=== PATIENT | female | born 1975 | race Caucasian/White ===

== ENCOUNTER 2018-11-21 19:49 | Emergency (ER) | payer OTHER ==
[~2018-11-21] VITALS: Ht 160 cm; Wt 70.7 kg
--- NOTE | 2018-11-21 20:07 | ECGEPIP ---
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
[2018-11-21] MEDS ORDERED: HEPARIN DRIP 25,000 UNITS in APPROPRIATE DILUENT 1 EA IV SCH (20:08)
[2018-11-21] MEDS ORDERED: HEPARIN SOD (PORCINE) 5000 UNITS/ML VIAL IV ONE (20:15)
[2018-11-21] MEDS ORDERED: TENECTEPLASE 50 MG KIT (TNKase)(J3101) IV ONE (20:15)
[2018-11-21] MEDS ORDERED: CLOPIDOGREL 300 MG TAB (PLAVIX) PO ONE (20:15)
[2018-11-21 20:20] VITALS: BP 146/88
[2018-11-21 20:21] LABS: BASO % 0.4 % (0.0-1.0); EOS # 0.1 10^3/uL (0.0-0.50); EOS % 1.1 % (0.0-3.0); HEMATOCRIT 40.1 % (36.0-47.0); HEMOGLOBIN 13.6 g/dl (12.0-15.5); LYMPH # 3.4 10^3/uL (1.5-4.5); LYMPH % 37.3 % (24.0-44.0); MEAN CORPUSCULAR HEMOGLOBIN 29.6 pg (27.0-33.0); MEAN CORPUSCULAR HGB CONC 33.9 g/dl (32.0-36.5); MEAN CORPUSCULAR VOLUME 87.4 fl (80.0-96.0); MONO # 0.6 10^3/uL (0.0-0.8); MONO % 6.5 % (0.0-5.0); NEUTROPHILS % 54.3 % (36.0-66.0); PLATELET COUNT, AUTOMATED 271 10^3/uL (150-450); RED BLOOD COUNT 4.59 10^6/uL (4.00-5.40); WHITE BLOOD COUNT 9.2 10^3/uL (4.0-10.0)
[2018-11-21] MEDS ORDERED: CBD OIL (20:22)
--- NOTE | 2018-11-21 20:35 | REP ---
Clinical: Chest pain . Comparison: None . Findings: The mediastinum and cardiac silhouette are stable and within normal limits for portable technique. The lung gillis are clear without acute consolidation, effusion, or pneumothorax. Skeletal structures are intact. Impression: No acute cardiopulmonary process appreciated. Electronically Signed by Zhang Silva MD 11/21/2018 08:27 P
[2018-11-21 20:39] LABS: INR 0.92; PROTHROMBIN TIME 12.5 SECONDS (12.1-14.4)
[2018-11-21 20:42] LABS: BLOOD UREA NITROGEN 8 MG/DL (7-18); CALCIUM LEVEL 8.6 MG/DL (8.5-10.1); CARBON DIOXIDE LEVEL 26 MEQ/L (21-32); CHLORIDE LEVEL 104 MEQ/L (98-107); CK-MB VALUE MASS < 1.0 NG/ML (<3.6); CPK CREATINE PHOSPHOKINASE 70 U/L (26-192); CREATININE FOR GFR 0.68 MG/DL (0.55-1.30); GLOMERULAR FILTRATION RATE > 60.0 (>58); GLUCOSE, FASTING 162 MG/DL (70-100); MB/CK RELATIVE INDEX 1.43 (< OR =4); POTASSIUM SERUM 3.6 MEQ/L (3.5-5.1); SODIUM LEVEL 139 MEQ/L (136-145); TROPONIN I 0.06 NG/ML (< 0.10)
== END 2018-11-21 20:33 | disposition short-term general hospital (02) ==
LOC: EDBD 19:49 → M ED 19:49
DX: I21.19 ST elevation (STEMI) myocardial infarction involving other coronary artery of inferior wall (principal); J30.2 Other seasonal allergic rhinitis; Z82.49 Family history of ischemic heart disease and other diseases of the circulatory system; Z79.899 Other long term (current) drug therapy
CPT/HCPCS: 71045; 80048; 82550; 82553; 85025; 85610; 93005; 93041; 94760; 96374; 99285; J3101

== ENCOUNTER 2018-11-21 20:49 | Emergency (ER) | payer OTHER ==
[~2018-11-21] VITALS: Ht 160 cm; Wt 70.7 kg
[~2018-11-21 20:49] MED LIST: CBD OIL
[2018-11-21 21:21] VITALS: BP 111/67
[2018-11-21] MEDS ORDERED: NS 1,000 ML IV ONE ×2 (21:30)
--- NOTE | 2018-11-21 21:36 | REP ---
Clinical: Hypotension. Technique: Axial noncontrast images from the thoracic inlet to the upper abdomen with coronal and sagittal re-formations. Findings: The bilateral lung gillis are relatively well aerated. Minimal posterior basilar dependent changes and trace left basilar atelectasis suggested. Small nodular density in the lateral aspect of the right lower lobe (image 69) and small nodular densities in the medial right middle lobe (image 67) cannot be excluded. No effusion. No pneumothorax. Tracheobronchial tree is patent. Mediastinum demonstrates normal thoracic aorta, heart and pericardium. No obvious adenopathy. Musculoskeletal structures are intact without focal osseous abnormality. Impression: 1. Trace dependent changes (left greater than right) 2. Small noncalcified nodular densities in the right lower lobe and medial right middle lobe warrants followup examination in 3-6 months. Electronically Signed by Zhang Silva MD 11/21/2018 09:28 P
--- NOTE | 2018-11-21 21:43 | REP ---
Clinical: Abdominal pain and hypotension. Technique: Axial noncontrast images from the lung bases to the pubic symphysis with coronal and sagittal re-formations. Comparison: 05/11/2016. Findings: Liver demonstrates scattered hypodensities which have increased from prior examination. The largest lesion is identified in the posterior segment right lobe and measures approximately 2.8 cm maximal diameter. Spleen, pancreas, gallbladder, bilateral adrenal glands and left kidney are normal. Right kidney includes 3 mm nonobstructing lower pole calculus. No perinephric stranding or hydroureteronephrosis. The enteric system is without obstruction or acute inflammatory process. Pelvis demonstrates normal bladder and age-appropriate uterus/adnexa. No ascites. No free air. No adenopathy. Abdominal aorta without aneurysm. Musculoskeletal structures are intact. Impression: 1. Increased hepatic hypodensities measuring up to 2.8 cm. Consider outpatient follow-up contrast-enhanced CT of the abdomen using hepatic mass protocol for further evaluation. 2. 3 mm nonobstructing right renal calculus. 3. No further acute abdominopelvic pathology appreciated. Electronically Signed by Zhang Silva MD 11/21/2018 09:34 P
--- NOTE | 2018-11-22 08:11 | ECGEPIP ---
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
== END 2018-11-21 21:35 | disposition short-term general hospital (02) ==
LOC: M ED 20:49
DX: I21.3 ST elevation (STEMI) myocardial infarction of unspecified site (principal); I47.2 Ventricular tachycardia; J30.2 Other seasonal allergic rhinitis; N20.0 Calculus of kidney; R91.8 Other nonspecific abnormal finding of lung field; Z79.899 Other long term (current) drug therapy

== ENCOUNTER 2019-02-16 09:04 | Observation (INO) | payer OTHER ==
[~2019-02-16] VITALS: Ht 162.6 cm; Wt 69.9 kg
[2019-02-16] MEDS ORDERED: ASPIRIN 81 MG CHEW TABLET PO ONE (09:15)
--- NOTE | 2019-02-16 09:37 | REP ---
Portable chest, 09:23, single AP view with the patient upright: Comparison is 11/21/2018. The lung gillis are clear. The cardiac size is normal. The giovani, mediastinum, and skeletal structures are unremarkable. Impression: Negative portable chest. There is no interval change. Electronically Signed by Tanner Tarango MD 02/16/2019 09:28 A
[2019-02-16] MEDS ORDERED: B-122500 PO (09:41)
[2019-02-16] MEDS ORDERED: FLON1SPR (09:41)
[2019-02-16] MEDS ORDERED: SING4CHW9 PO (09:41)
[2019-02-16] MEDS ORDERED: D 50CAP3 PO (09:41)
[2019-02-16] MEDS ORDERED: MULT1TAB16 PO (09:41)
[2019-02-16] MEDS ORDERED: CLOP75TA2 PO (09:41)
[2019-02-16] MEDS ORDERED: CALCCAP4 PO (09:41)
[2019-02-16] MEDS ORDERED: AZEL1SPR3 (09:41)
[2019-02-16] MEDS ORDERED: VITA500C24 PO (09:41)
[2019-02-16] MEDS ORDERED: ATOR80TA59 PO (09:41)
[2019-02-16] MEDS ORDERED: OMEGCAP4 PO (09:41)
[2019-02-16] MEDS ORDERED: ASPI81TA85 PO (09:41)
[2019-02-16] MEDS ORDERED: ALAW0.02 OU (09:41)
[2019-02-16] MEDS ORDERED: VITA1CAP21 PO (09:41)
[2019-02-16] MEDS ORDERED: VITA400C5 PO (09:41)
[2019-02-16] MEDS ORDERED: METO1TAB87 PO (09:41)
[2019-02-16] MEDS ORDERED: LISI-542 PO (09:41)
[2019-02-16] MEDS ORDERED: CETI10CA2 PO (09:41)
[2019-02-16] MEDS ORDERED: NITR0.4S14 SL (09:41)
[2019-02-16] MEDS ORDERED: MAGN100T PO (09:41)
[2019-02-16] MEDS ORDERED: CLOPIDOGREL 75 MG TAB PO ONE (10:15)
[2019-02-16] MEDS ORDERED: METOPROLOL TART 25 MG TABLET PO ONE (10:15)
[2019-02-16] MEDS ORDERED: LISINOPRIL 5 MG TAB PO ONE (10:15)
[2019-02-16 10:22] LABS: BASO % 0.2 % (0.0-1.0); EOS % 0.2 % (0.0-3.0); HEMATOCRIT 39.2 % (36.0-47.0); HEMOGLOBIN 13.4 g/dl (12.0-15.5); LYMPH # 1.1 10^3/uL (1.5-4.5); LYMPH % 10.9 % (24.0-44.0); MEAN CORPUSCULAR HEMOGLOBIN 30.5 pg (27.0-33.0); MEAN CORPUSCULAR HGB CONC 34.2 g/dl (32.0-36.5); MEAN CORPUSCULAR VOLUME 89.3 fl (80.0-96.0); MONO # 0.4 10^3/uL (0.0-0.8); MONO % 3.9 % (0.0-5.0); NEUTROPHILS # 8.5 10^3/uL (1.8-7.7); NEUTROPHILS % 84.3 % (36.0-66.0); PLATELET COUNT, AUTOMATED 243 10^3/uL (150-450); RED BLOOD COUNT 4.39 10^6/uL (4.00-5.40); WHITE BLOOD COUNT 10.1 10^3/uL (4.0-10.0)
[2019-02-16 10:32] LABS: INR 1.06; PARTIAL THROMBOPLASTIN TIME 26.3 SECONDS (25.0-38.4); PROTHROMBIN TIME 13.5 SECONDS (11.8-14.0)
[2019-02-16 10:46] LABS: BLOOD UREA NITROGEN 12 MG/DL (7-18); CARBON DIOXIDE LEVEL 27 MEQ/L (21-32); CHLORIDE LEVEL 105 MEQ/L (98-107); CK-MB VALUE MASS < 1.0 NG/ML (<3.6); CPK CREATINE PHOSPHOKINASE 53 U/L (26-192); CREATININE FOR GFR 0.63 MG/DL (0.55-1.30); GLOMERULAR FILTRATION RATE > 60.0 (>58); GLUCOSE, FASTING 101 MG/DL (70-100); MB/CK RELATIVE INDEX 1.89 (< OR =4); POTASSIUM SERUM 3.9 MEQ/L (3.5-5.1); SODIUM LEVEL 141 MEQ/L (136-145); THYROID STIMULATING HORMONE 0.732 uIU/ML (0.358-3.740); TROPONIN I < 0.02 NG/ML (< 0.10)
[2019-02-16 12:40] LABS: CK-MB VALUE MASS < 1.0 NG/ML (<3.6); CPK CREATINE PHOSPHOKINASE 47 U/L (26-192); MB/CK RELATIVE INDEX 2.13 (< OR =4); TROPONIN I < 0.02 NG/ML (< 0.10)
[2019-02-16 14:53] LABS: CK-MB VALUE MASS < 1.0 NG/ML (<3.6); CPK CREATINE PHOSPHOKINASE 49 U/L (26-192); MB/CK RELATIVE INDEX 2.04 (< OR =4); TROPONIN I < 0.02 NG/ML (< 0.10)
[2019-02-16] MEDS ORDERED: MONT10TA2 PO (16:11)
[2019-02-16] MEDS ORDERED: TUMS500C PO (16:11)
[2019-02-16] MEDS ORDERED: RANI1TAB6 PO (16:11)
[2019-02-16] MEDS ORDERED: VITA10002 PO (16:11)
[2019-02-16] MEDS ORDERED: MAGN125C PO (16:11)
--- NOTE | 2019-02-16 17:19 | HPE ---
DATE OF ADMISSION: 02/16/2019 CHIEF COMPLAINT: Syncope. PRIMARY CARE PROVIDER: [facility]. DRY SANDER: Dr. Snyder. HISTORY: Earnestine Troy is a 43-year-old who had a recent ST segment invasion of myocardial infarction with rescue angioplasty to the right coronary artery with followup stenting of the LAD. She was admitted after having syncopal episode. She stood up this morning to get out of bed and she felt weak and lightheaded and flushed. She passed out. There are no associated palpitations. Last night she had some mild indigitation but no anginal pain. PAST MEDICAL HISTORY: Shows some mild hyperlipidemia and is being treated with Niacin and not a statin prior to her myocardial infarction. She has a history of allergic rhinitis. ALLERGIES: Unknown. MEDICATIONS: See medication summary. FAMILY HISTORY: Positive for coronary disease in father, had an PR at 48. REVIEW OF SYSTEMS: As above. No epistaxis, rectal bleeding, urinary bleeding, palpitations, no previous syncope. Exercise tolerance her been normal. PHYSICAL EXAM: Vital signs per flow sheet, 145/85. General, alert and conversant. No distress. Pupils are equal and round. Lungs are clear. Heart regular without murmur. Abdomen is soft and nontender and no masses. No peripheral edema. Normal strength in the arms and legs. EKG showed no ischemia. CBC and BMP unremarkable. IMPRESSION/PLAN: 1. Syncope. Probably orthostasis. The ER physician spoke with Dr. Snyder and he is advising telemetry monitoring overnight. Patient will be admitted to telemetry bed. Repeat cardial enzymes were ordered for tonight and in the morning. Electrolytes were ordered for the morning. Continue beta-ena therapy. 2. Continue aspirin. Plavix, and betablocker and atorvastatin. 3. Allergic rhinitis. Continue her singular. Case was discussed with Dr. Snyder. Patient has an appointment in the office in 3 days.
[2019-02-16 17:25] VITALS: BP 132/83
[2019-02-16 20:00] VITALS: BP 145/85
[2019-02-16] MEDS: METOPROLOL TART 25 MG TABLET PO SCH (20:46)
[2019-02-16] MEDS ORDERED: ATORVASTATIN 20 MG TAB PO SCH (21:00)
[2019-02-16] MEDS ORDERED: MONTELUKAST 10 MG TAB PO SCH (21:00)
[2019-02-16 21:35] LABS: CK-MB VALUE MASS < 1.0 NG/ML (<3.6); CPK CREATINE PHOSPHOKINASE 69 U/L (26-192); MB/CK RELATIVE INDEX 1.45 (< OR =4); TROPONIN I < 0.02 NG/ML (< 0.10)
[2019-02-16 23:59] VITALS: BP 116/73
[2019-02-17] MEDS ORDERED: FUROSEMIDE 40 MG/4 ML VIAL (J1940) IV ONE (03:15)
[2019-02-17 04:00] VITALS: BP 120/69
[2019-02-17 05:50] LABS: HEMATOCRIT 37.3 % (36.0-47.0); HEMOGLOBIN 12.5 g/dl (12.0-15.5); MEAN CORPUSCULAR HGB CONC 33.5 g/dl (32.0-36.5); MEAN CORPUSCULAR VOLUME 89.4 fl (80.0-96.0); PLATELET COUNT, AUTOMATED 236 10^3/uL (150-450); RED BLOOD COUNT 4.17 10^6/uL (4.00-5.40); WHITE BLOOD COUNT 7.6 10^3/uL (4.0-10.0)
[2019-02-17 06:25] LABS: BLOOD UREA NITROGEN 10 MG/DL (7-18); CALCIUM LEVEL 8.4 MG/DL (8.5-10.1); CARBON DIOXIDE LEVEL 25 MEQ/L (21-32); CHLORIDE LEVEL 106 MEQ/L (98-107); CK-MB VALUE MASS < 1.0 NG/ML (<3.6); CPK CREATINE PHOSPHOKINASE 70 U/L (26-192); CREATININE FOR GFR 0.68 MG/DL (0.55-1.30); GLOMERULAR FILTRATION RATE > 60.0 (>58); GLUCOSE, FASTING 123 MG/DL (70-100); MB/CK RELATIVE INDEX 1.43 (< OR =4); POTASSIUM SERUM 4.1 MEQ/L (3.5-5.1); SODIUM LEVEL 139 MEQ/L (136-145); TROPONIN I < 0.02 NG/ML (< 0.10)
[2019-02-17 08:00] VITALS: BP 113/72
[2019-02-17 08:10] VITALS: BP 124/74
[2019-02-17 08:14] VITALS: BP 124/74
[2019-02-17] MEDS: METOPROLOL TART 25 MG TABLET PO SCH (08:14)
[2019-02-17] MEDS ORDERED: LISINOPRIL 5 MG TAB PO SCH (09:00)
[2019-02-17] MEDS ORDERED: ASPIRIN 81 MG ENTERIC TAB PO SCH (09:00)
[2019-02-17] MEDS ORDERED: CLOPIDOGREL 75 MG TAB PO SCH (09:00)
[2019-02-17] MEDS ORDERED: MONTELUKAST 10 MG TAB PO SCH (09:00)
--- NOTE | 2019-02-17 17:01 | ECGEPIP ---
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
--- NOTE | 2019-02-17 18:49 | DS.PDOC ---
Discharge Summary General Date of Admission Feb 16, 2019 at 15:25 Date of Discharge 02/17/2019 Discharge Summary PROCEDURES PERFORMED DURING STAY: None. ADMITTING DIAGNOSES: 1. Syncope. DISCHARGE DIAGNOSES: 1. Syncope, coronary artery disease, dyslipidemia, allergic rhinitis. COMPLICATIONS/CHIEF COMPLAINT: Syncope. HISTORY OF PRESENT ILLNESS/HOSPITAL COURSE: This is a 43-year-old female who has a history of coronary artery disease. She had required angioplasty to the right coronary artery and stent to her LAD. The patient was found to have had a syncopal event today. She stood up rapidly and became lightheaded and flushed and passed out. She did not have any palpitations or chest pain associated with the event. The patient was placed on the telemetry floor. She is not noted to have any acute EKG changes and did not have recurrence of the event. Patient did receive IV hydration as it was felt the event was likely due to orthostatic hypotension. Serial cardiac enzymes were negative on 3 occasions. The patient's dental floss packer was contacted; recommendations are that the patient follow-up in his office on Tuesday.. DISCHARGE MEDICATIONS: Please see below. ALLERGIES: Please see below. PHYSICAL EXAMINATION ON DISCHARGE: VITAL SIGNS: Please see below. GENERAL: Awake, alert, conversant HEENT: Neck is supple with no adenopathy or thyromegaly, no scleral injection, oral mucosa moist CARDIOVASCULAR EXAMINATION: Regular rate and rhythm, no appreciable murmur RESPIRATORY EXAMINATION: Clear to auscultation ABDOMINAL EXAMINATION: Soft, benign EXTREMITIES: No peripheral edema SKIN: No acute lesions NEUROLOGICAL EXAMINATION: No focal neuromotor deficits, fully independently ambulatory LABORATORY DATA: Please see below. IMAGING: PROGNOSIS: ACTIVITY: As tolerated. DIET: Heart healthy DISCHARGE PLAN: The patient is stable for discharge to home. She'll follow up as planned with Dr. Snyder on Tuesday. Her medications are unchanged. DISPOSITION: , Self-Care. DISCHARGE CONDITION: Stable. TIME SPENT ON DISCHARGE: Greater than 35 minutes. Vital Signs/I&Os Vital Signs Date Time Temp Pulse Resp B/P (MAP) Pulse Ox O2 Delivery O2 Flow Rate FiO2 02/17/19 08:14 124/74 02/17/19 08:00 97.8 76 16 96 02/16/19 14:30 Room Air I&O- Last 24 Hours up to 6 AM 02/17/19 06:00 Intake Total 1560 ml Output Total 1500 ml Balance 60 ml Laboratory Data Labs 24H Laboratory Tests 2 02/16/19 20:56: Total Creatine Kinase 69, Creatine Kinase MB < 1.0, Creatine Kinase MB Relative Index 1.45, Troponin I < 0.02 02/17/19 04:54: Total Creatine Kinase 70, Creatine Kinase MB < 1.0, Creatine Kinase MB Relative Index 1.43, Troponin I < 0.02, Nucleated Red Blood Cells % (auto) 0.0, Anion Gap 8, Glomerular Filtration Rate > 60.0, Blood Urea Nitrogen 10, Creatinine 0.68, Sodium Level 139, Potassium Level 4.1, Chloride Level 106, Carbon Dioxide Level 25, Calcium Level 8.4L CBC/BMP Laboratory Tests 02/17/19 04:54 Red Blood Count 4.17, Mean Corpuscular Volume 89.4, Mean Corpuscular Hemoglobin 30.0, Mean Corpuscular Hemoglobin Concent 33.5, Red Cell Distribution Width 12.1, Calcium Level 8.4 L, Total Creatine Kinase 70 Discharge Medications Scheduled Ascorbic Acid (Vitamin C) 500 Mg Capsule, 500 MG PO DAILY, (Reported) Aspirin (Aspir 81) 81 Mg Tablet.dr, 81 MG PO DAILY, (Reported) Atorvastatin Calcium (Atorvastatin Calcium) 80 Mg Tablet, 80 MG PO QHS, (Reported) Calcium Carbonate/Vitamin D3 (Calcium 600 + Vit D 400 Softgl) 1 Each Capsule, 1 CAP PO Q2D, (Reported) Cetirizine HCl (ZyrTEC) 10 Mg Capsule, 10 MG PO DAILY, (Reported) Cholecalciferol (Vitamin D3) (Vitamin D3) 5,000 Unit Capsule, 5,000 UNIT PO DAILY, (Reported) Clopidogrel Bisulfate (Clopidogrel) 75 Mg Tablet, 75 MG PO DAILY, (Reported) Cyanocobalamin (Vitamin B-12) (Vitamin B-12) 1,000 Mcg Tablet, 1,000 MCG PO DAILY, (Reported) Lisinopril (Lisinopril) 5 Mg Tablet, 5 MG PO DAILY, (Reported) Magnesium Citrate (Magnesium Citrate) 125 Mg Capsule, 125 MG PO DAILY, (Reported) Metoprolol Tartrate (Metoprolol Tartrate) 25 Mg Tablet, 25 MG PO BID, (Reported) Mv-Min/Iron/Folic/Calcium/Vitk (Women's Multivitamin Tablet) 1 Each Tablet, 1 TAB PO DAILY, (Reported) [place]-3/Dha/Epa/Fish Oil ([place]-3 Fish Oil 1,000 mg Sfgl) 1,000 Mg Capsule, 1,000 MG PO DAILY, (Reported) Vitamin E (Dl,Tocopheryl Acet) (Vitamin E) 400 Unit Capsule, 400 UNIT PO DAILY, (Reported) Scheduled PRN Azelastine HCl (Azelastine HCl) 0.1% [place].pump, 2 SPRAY NA BID PRN for ALLERGIES, (Reported) Calcium Carbonate (Tums) 200 Mg Tab.chew, 500 MG PO ACHS PRN for HEARTBURN, (Reported) Fluticasone Propionate (Flonase Allergy Relief) 9.9 Ml [place].susp, 1 SPRAY NA BID PRN for ALLERGIES, (Reported) Ketotifen Fumarate (Alaway) 0.025% 10ML Drops, 1 DROP OU BID PRN for ALLERGIES, (Reported) Montelukast Sodium (Montelukast Sodium) 10 Mg Tablet, 10 MG PO DAILY PRN for ALLERGIES, (Reported) Nitroglycerin (Nitroglycerin) 0.4 Mg Tab.subl, 1 TAB SL NITRO PRN for CHEST PA IN, (Reported) Ranitidine HCl (Ranitidine HCl) 150 Mg Tablet, 1 TAB PO DAILY PRN for HEARTBURN, (Reported) Allergies Coded Allergies: No Known Allergies (Verified , 03/04/03) MILADY KIRAN MD Feb 17, 2019 18:49
--- NOTE | 2019-02-18 06:31 | ECGEPIP ---
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
--- NOTE | 2019-02-18 06:37 | ECGEPIP ---
[facility] - ED Test Date: 2019-02-16 Pat Name: JIGNA VASQUES Department: Room: - Gender: Female Lead Person: SAMANTHA : 1975 Requested By: Jah Zamarripa Order Number: [id number] Reading MD: Jah Almazan Measurements Intervals [place] Rate: 58 P: 64 TN: 179 QRS: 46 QRSD: 93 T: 2 QT: 418 QTc: 412 Interpretive Statements SINUS BRADYCARDIA PRIOR INFERIOR INFARCT NONSPECIFIC T-WAVE ABNORMALITY SIMILAR TO PRIOR ON SAME DATE Electronically Signed on 02-18-2019 6:36:51 EDT by Jah Almazan
--- NOTE | 2019-02-18 06:39 | ECGEPIP ---
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
== END 2019-02-17 12:02 | disposition home or self-care (01) ==
LOC: EDBD 09:04 → M ED 09:04 → M ED INP 15:25 → M PCU 17:19
PROVIDERS: ADMIT Family Medicine; ATTEND Student in an Organized Health Care Education/Training Program
DX: R55 Syncope and collapse (principal); I25.10 Atherosclerotic heart disease of native coronary artery without angina pectoris; I25.2 Old myocardial infarction; E78.49 Other hyperlipidemia; J30.9 Allergic rhinitis, unspecified; Z79.82 Long term (current) use of aspirin; Z79.899 Other long term (current) drug therapy; Z79.02 Long term (current) use of antithrombotics/antiplatelets

== ENCOUNTER → 2019-03-22 | Outpatient (CLI) | payer OTHER ==
[~2019-03-22] MED LIST changes: +ALAW0.02 OU; +ASPI81TA85 PO; +ATOR80TA59 PO; +AZEL1SPR3; +B-122500 PO; +CALCCAP4 PO; +CETI10CA2 PO; +CLOP75TA2 PO; +CYAN100049 PO; +D 50CAP3 PO; +FLON1SPR; +GASTROGRAFIN SOLUTION 30ML (Q9963) As Ordered ONE; +ISOVUE-370 76% 100ML VIAL (Q9967) As Ordered ONE; +LISI-542 PO; +MAGN100T PO; +MAGN125C PO; +METO1TAB87 PO; +MONT10TA2 PO; +MULT1TAB16 PO; +NITR0.4S14 SL; +OMEGCAP4 PO; +RANI1TAB6 PO; +SING4CHW9 PO; +TUMS500C PO; +VITA1CAP21 PO; +VITA400C5 PO; +VITA500C24 PO
--- NOTE | 2019-03-23 19:44 | REP ---
CT of the chest without IV contrast: Comparison is 11/20/2018. There is an 8 ml nodule in the lateral basilar segment right lower lobe on image 69. On the comparison study this nodule also measured at 8 mm. The lack of interval change converts this to a category II lung nodule with the probability of malignancy less than 1%. Annual follow-up is recommended. On the comparison study there was a questionable nodule medially in the medial segment right middle lobe. This nodule is no longer present, therefore, likely transient atelectasis. There are no other lung nodules or masses. There are no infiltrates or effusions. There is no mediastinal or axillary lymph node enlargement. In the absence of IV contrast the study is insensitive for hilar lymph node enlargement. The unenhanced thoracic aorta is unremarkable. Cardiac size is upper normal. There is calcified atheroma in the coronary arteries. Impression: The right lower lobe lung nodule is unchanged, therefore a category II lung nodule as discussed. Annual follow-up is recommended. The right middle lobe lung nodule identified previously is no longer present, therefore likely transient atelectasis. Electronically Signed by Tanner Tarango MD 03/23/2019 07:35 P
--- NOTE | 2019-03-23 20:04 | REP ---
CT of the abdomen pelvis without and with IV contrast, multiphase imaging for hepatic hypodensities on a prior CT scan of 11/21/2018 without IV contrast: Scanning is initially performed without IV contrast. After IV contrast imaging is initially performed during the arterial phase of enhancement and repeated during the portal venous phase of enhancement, and again after 5-minute delay and again after additional 10-minute delay. There are multiple hepatic hypodensities throughout the right lobe. None of these hypodensities enhances on any phase of the study. This is compatible with multiple hepatic cysts. The largest measures up to 2.5 cm. The gallbladder, pancreas, spleen, adrenals, kidneys and abdominal aorta are unremarkable except for a persisting nonobstructive right renal lower pole 3 mm calculus, unchanged. The bowel and mesentery are unremarkable. Pelvis: The uterus, adnexa and bladder are unremarkable. There is no adenopathy or ascites. The pelvic bowel loops are unremarkable. Impression: The multiple hepatic hypodensities are compatible with multiple hepatic cysts. Nonobstructive 3 mm right renal lower pole calculus, unchanged. Electronically Signed by Tanner Tarango MD 03/23/2019 07:55 P
== END ==
LOC: M RAD 09:45
PROVIDERS: ATTEND Physician Assistant Medical
DX: K76.89 Other specified diseases of liver (principal)
CPT/HCPCS: 71250; 74178; Q9963; Q9967

== ENCOUNTER → 2020-03-17 | Outpatient (CLI) | payer OTHER ==
[~2020-03-17] MED LIST changes: -ASPI81TA85 PO; +ASPI81TA86 PO; +CBD OIL PO; +CO Q200C10 PO; +CVS1CAP2 PO; +D31000TA2 PO; +FERR325T3 PO; -GASTROGRAFIN SOLUTION 30ML (Q9963) As Ordered ONE; -ISOVUE-370 76% 100ML VIAL (Q9967) As Ordered ONE; -MONT10TA2 PO; +MONT10TA4 PO; +OXYC-517 PO; +RANI-397 PO; -RANI1TAB6 PO; -VITA400C5 PO; +VITA400C83 PO; +VITAD400CA FT
--- NOTE | 2020-03-17 15:21 | REP ---
DIGITAL DIAGNOSTIC BILATERAL MAMMOGRAPHY WITH CAD, 3D TOMOGRAPHY, AND FOCUSED RIGHT BREAST SONOGRAPHY: HISTORY: Right breast lump upper outer quadrant. No comparison mammography. MAMMOGRAPHIC FINDINGS: A skin marker is affixed to the skin at the site of the palpable lump in the upper outer quadrant right breast. Routine views are augmented by magnified focal spot compression and 3D imaging. There is a 1.6 cm spiculated mass at the site of the palpable lump in the upper outer quadrant. There is an area of adjacent contour deformity but no definite skin thickening. There are a few microcalcifications within the lesion as well. This is considered suspicious. It is confirmed on magnified focal spot views. No other mammographically suspicious finding is seen in the right breast. There is a normal-appearing lymph node. The left breast is unremarkable. Heterogeneous, extremely dense, fibroglandular breast parenchyma is seen mammographically. The Volpara volumetric breast density category is: D . SONOGRAPHIC FINDINGS: Scanning in the upper outer quadrant of the right breast in the area of the palpable lump demonstrates a hypoechoic mass, 5 cm from the nipple at 10-o'clock position. This measures 1.5 x 1.5 x 1.0 cm by sonography. There are a few visible spiculations along its contour. IMPRESSION: BIRADS 5: BI-RADS/ACR category 5 mammogram. Highly Suggestive of Malignancy - appropriate action should be taken. Highly suspicious BIRADS category 5 right breast imaging. The palpable abnormality corresponds to a spiculated mass in the upper outer quadrant on the right both mammographically and sonographically. No other suspicious finding. Recommend ultrasound guided needle biopsy procedure right breast, with marker clip placement and post clip placement mammography. This mammogram was interpreted with the aid of an FDA-approved computer-aided detection system. The patient states that she/he has not had a clinical breast exam in over a year. The patient letter being requested is M4 dense. This patient's estimated Tyrer-Cuzick lifetime risk assessment for breast cancer is 11.7 %.
== END ==
LOC: M WHC 12:49
PROVIDERS: ATTEND Advanced Practice Midwife
DX: N63.10 Unspecified lump in the right breast, unspecified quadrant (principal)
CPT/HCPCS: 76642; 77066; G0279

== ENCOUNTER → 2020-03-27 | Outpatient (CLI) | payer OTHER ==
[~2020-03-27] MED LIST changes: +GASTROGRAFIN SOLUTION 30ML (Q9963) As Ordered ONE; +ISOVUE-370 76% 100ML VIAL As Ordered ONE
--- NOTE | 2020-06-23 11:11 | REP ---
CT OF THE ABDOMEN AND PELVIS WITH CONTRAST: HISTORY: Liver lesions. TECHNIQUE: Axial contrast-enhanced images from the lung bases to the pubic symphysis using oral (per protocol) and 100 cc Isovue 370 intravenous contrast material with delayed images of the abdomen as well as coronal and sagittal reformations. FINDINGS: The lung bases are clear. The visualized heart and pericardium are normal. The liver demonstrates mild fatty infiltration along with multiple hypodensities measuring between 8 mm and 3 cm, which remain stable on delayed imaging and are compatible with cysts. The spleen, pancreas, gallbladder, bilateral adrenal glands and kidneys are normal. The enteric system is without obstruction or acute inflammatory process. A normal terminal ileum and appendix are identified in the right lower quadrant. The pelvis demonstrates normal bladder and age appropriate uterus/adnexa. No ascites. No free air. No adenopathy. The abdominal aorta is without aneurysm. Musculoskeletal structures are intact. IMPRESSION: 1. Hepatic lesions up to 3 cm compatible with benign cysts. 2. No further acute abdominopelvic pathology appreciated. MTDD
== END ==
LOC: M RAD 13:00
PROVIDERS: ATTEND Physician Assistant Medical
DX: K76.89 Other specified diseases of liver (principal)
CPT/HCPCS: 74176; Q9963; Q9967

== ENCOUNTER → 2020-03-28 | Outpatient (CLI) | payer OTHER ==
[~2020-03-28] MED LIST changes: -GASTROGRAFIN SOLUTION 30ML (Q9963) As Ordered ONE; -ISOVUE-370 76% 100ML VIAL As Ordered ONE
--- NOTE | 2020-05-16 08:56 | REP ---
RIGHT BREAST NEEDLE BIOPSY PROCEDURE: ULTRASOUND GUIDANCE This report was delayed due to a malware attack on this facility. FINDINGS: Sonographic guidance is provided to Dr. Cooley, who performed a right breast needle biopsy procedure with HydroMARK clip placement. EARL
--- NOTE | 2020-05-16 08:58 | REP ---
DIGITAL DIAGNOSTIC UNILATERAL RIGHT BREAST MAMMOGRAPHY: 2-VIEWS HISTORY: Marker clip placement. Patient is status post ultrasound-guided needle biopsy. COMPARISON: Mammography from 03/17/20. This report was delayed due to a protracted episode of network disruption experienced by this facility. FINDINGS: Craniocaudal and mediolateral views demonstrate a needle biopsy marker clip centrally located within the spiculated mass in the upper outer quadrant of the right breast. There is some overlying skin dimpling and thickening. No hematoma is seen. Marker clip in good position. This study was read with the aid of an FDA approved computer rated detection system. MTDD
--- NOTE | 2020-05-22 19:24 | ROOPDOC ---
[facility] Report Of Operation Report of Operation This is a late entry note for the encounter from the date 03/28/20. Delay is due to major systemwide [facility] computer outage. Procedure Date 03/28/20 Dx: Right breast mass with BIRADS 5 right breast mammogram findings Procedure: Right breast mass ultrasound guided biopsy with clip placement Findings: postbiopsy clip is seen in the middle of right breast mass Surgeon: Marco Walton Lidocaine 1% LOT [id number] Expiration 01/2023 Sodium Bicarbonate 8.4% LOT [id number] Expiration 01/2021 Hydromark clip LOT [id number] Expiration 09/2022 SHAPE 4 Bx device: BARD [id number] x10 cm LOT [id number] Expiration 10/2022 Informed consent was obtained. The most common risk and possible complications including bleeding, hematoma, bruising, infection, injury to surrounding structures were explained to the patient and she expressed understanding. Patient was placed on the bed in the supine position. Appropriate time out was done stating patients name, date of , and the procedure to be performed. The right breast was prepped and draped in the usual fashion. The ultrasound was used to confirm the location of the lesion in the right breast at 10:00 4 centimeters from the nipple. Plain Lidocaine 1% and 8.4% sodium bicarbonate 10:1 mix was used to anesthetize the skin, the biopsy site and tissues along the anticipated biopsy tract. Small skin incision was made with blade number 11. BARD Marquee 14G cannula with in troducer ([id number]) was inserted through the incision and advanced under the ultrasound guidance to position immediately adjacent to the lesion. Next, the introducer was removed and BARD Marquee 14G biopsy device was places in the cannula. Pre-biopsy imaging, and post-biopsy imaging were captured. Five good core biopsies were taken at various levels of the lesion. Specimen was placed in formaldehyde, labeled with appropriate biopsy site and patients name, and sent to pathology for evaluation. Next, the biopsy device was withdrawn and a clip introducer was inserted into the biopsy site via the cannula. The SHAPE 4 Hydromark clip was deployed under sonographic guidance. Post-clip placement image was captured. Manual pressure over the biopsy cavity and tract was held after the clip introducer was withdrawn. No bleeding was noted upon removal of the pressure. Post-biopsy mammogram of the right breast was obtained and showed clip in the middle of suspicious mass. Post procedural dressing was placed. Patient tolerated procedure well. Discharge instructions were discussed with the patient and she expressed understanding. MARCO WALTON DO May 22, 2020 19:24
== END ==
LOC: M WHC 15:38
PROVIDERS: ATTEND Surgery
DX: N63.10 Unspecified lump in the right breast, unspecified quadrant (principal)

== ENCOUNTER → 2020-04-03 | Outpatient (REF) | payer OTHER ==
[2020-05-18 11:42] LABS: BLOOD UREA NITROGEN 11 MG/DL (7-18); CALCIUM LEVEL 9.2 MG/DL (8.5-10.1); CARBON DIOXIDE LEVEL 29 MEQ/L (21-32); CHLORIDE LEVEL 106 MEQ/L (98-107); CREATININE FOR GFR 0.65 MG/DL (0.55-1.30); GLOMERULAR FILTRATION RATE > 60.0 (>58); GLUCOSE, FASTING 87 MG/DL (70-100); POTASSIUM SERUM 4.7 MEQ/L (3.5-5.1); SODIUM LEVEL 141 MEQ/L (136-145)
== END ==
LOC: M SFHCWAGY 12:29
PROVIDERS: ATTEND Surgery
DX: C50.911 Malignant neoplasm of unspecified site of right female breast (principal)

== ENCOUNTER → 2020-04-04 | Outpatient (CLI) | payer OTHER ==
--- NOTE | 2020-05-19 10:35 | REP ---
CT OF THE CHEST WITHOUT IV CONTRAST: HISTORY: The study is performed for evaluation of lung nodules. COMPARISON: 03/22/19 and 11/21/18. FINDINGS: The patient's known right lower lobe lung nodule is again seen on image 71 in the lateral inferior sulcus of the right lower lobe measuring 8 mm. This is unchanged from both prior studies, therefore likely benign. On 11/21/18, there were small nodular densities in the medial segment of the right middle lobe. These had resolved on 03/22/19 and remain resolved on the study today, likely transient atelectasis. However, in addition, there is a 4 mm lung nodule in the right lower lobe on image 57. In retrospect, this is unchanged from both prior studies, therefore likely benign. There are no other lung nodules or masses. There are no acute infiltrates or pleural effusions. The unenhanced thoracic aorta is unremarkable. Cardiac size is normal. There is no pericardial effusion. There is calcified coronary artery vascular atheroma. This is unchanged. In the upper abdomen, there are 2 cysts in the dome of the liver, not significantly changed from an abdomen CT of 06/06/15, maybe slightly increased in size. IMPRESSION: There are stable lung nodules as described. No new lung nodules or enlarging nodules. There are no infiltrates or pleural effusions. No mediastinal or axillary adenopathy. The study is insensitive for hilar adenopathy in the absence of IV contrast. Calcified atheroma in the coronary arteries, unchanged. Cysts in the dome of the liver, slightly increased from an abdominal CT of 06/06/15. MTDD
== END ==
LOC: M RAD 09:16
PROVIDERS: ATTEND Physician Assistant Medical
DX: R91.1 Solitary pulmonary nodule (principal)

== ENCOUNTER → 2020-05-02 | Outpatient (CLI) | payer OTHER ==
--- NOTE | 2020-05-26 10:14 | REP ---
ULTRASOUND BILATERAL BREASTS FINDINGS: Real-time sonographic evaluation of bilateral breasts performed. This was a second look ultrasound to evaluate abnormalities seen on a prior MRI performed at [facility] on 04/07/2020. On the right, a spiculated mass was previously biopsied and is cancerous, biopsy was performed 03/28/2020. The MRI showed a nodule just superior and anterior and medial to the spiculated mass. The nodular area of enhancement was measured to be 6 mm, 1 cm away from the spiculated mass. Ultrasound today of this area does not show evidence of this nodule sonographically. If the spiculated nodule is to be resected, then a wide surgical margin could be made to include this abnormality. Otherwise, if histologic sampling is required, biopsy would need to be performed using MRI guidance. On the left, the MRI showed a linear band of enhancement in the posterior third of the left breast at the 12 oclock position. No sonographic abnormality is seen today at this location. It is felt that an irregular linear density is visible on the MLO view of the left mammography exam, and, therefore, stereotactic biopsy could be performed. Alternatively, if this is not successful, MR biopsy could be performed. EARL
== END ==
LOC: M RAD 13:38
PROVIDERS: ATTEND Surgery
DX: C50.911 Malignant neoplasm of unspecified site of right female breast (principal)

== ENCOUNTER → 2020-05-22 | Outpatient (CLI) | payer OTHER ==
[2020-05-22 15:33] VITALS: BP 122/58
--- NOTE | 2020-05-28 08:48 | REP ---
DIGITAL DIAGNOSTIC UNILATERAL LEFT BREAST MAMMOGRAPHY HISTORY: Suspicious linear area of enhancement at 12 o'clock of the left breast on MRI study 04/07/2020. Contralateral right breast malignancy. Comparison is also made with mammography 03/17/2020. FINDINGS: Marker clip placement mammography demonstrates the marker clip in good position in the left breast superiorly in the area where MLO views showed a linear morphology containing a punctate calcification corresponding to the linear pattern and location seen on MR. IMPRESSION: Marker clip is believed to be in good position. MTDD
--- NOTE | 2020-05-28 08:59 | REP ---
STEREOTACTIC LEFT BREAST BIOPSY The procedure was performed under the general supervision of Dr. Wilhelm. CONSENT: The risks and benefits of the procedure were explained to the patient and informed consent was obtained. DESCRIPTION OF PROCEDURE: A mediolateral oblique approach was utilized. The nodule was localized using stereotactic mammographic guidance. The skin was prepped and draped in a sterile fashion. 1% Lidocaine was used as a local anesthetic. A 10-gauge suction-assisted Mammotome needle was inserted and nine core biopsy samples were obtained. Specimen radiograph demonstrates the presence of calcification to be within the specimen. A marker clip was placed at the biopsy site. The patient tolerated the procedure well and there were no immediate complications. After the appropriate amount of monitoring convalescence, the patient was discharged from the department. EARL
--- NOTE | 2020-05-28 09:01 | REP ---
SPECIMEN RADIOGRAPHY, LEFT BREAST HISTORY: Stereotactic needle biopsy left breast. COMPARISONS: Mammography 03/28/2020, MRI study 04/07/2020, and breast sonography 05/02/2020. There is a single punctate calcification in the linear mammographic density, which is the target of todays stereotactic needle biopsy. FINDINGS: Specimen radiography demonstrates microcalcification from the target in the left breast. Only a single calcification was visible and it has been removed. MTDD
== END ==
LOC: M WHCPRO 11:55
PROVIDERS: ATTEND Surgery
DX: N60.12 Diffuse cystic mastopathy of left breast (principal)

== ENCOUNTER → 2020-05-31 | Outpatient (CLI) | payer OTHER | LOC: M LABSMTC 11:24 | PROVIDERS: ATTEND Anesthesiology | DX: Z01.812 Encounter for preprocedural laboratory examination (principal); Z20.828 Contact with and (suspected) exposure to other viral communicable diseases | CPT/HCPCS: C9803; U0003 ==

== ENCOUNTER 2020-06-05 09:35 | Observation (INO) | payer OTHER ==
[~2020-06-05] VITALS: Ht 160 cm; Wt 67.1 kg
[~2020-06-05 09:35] MED LIST changes: -FERR325T3 PO; +HEPARIN SOD (PORCINE) 5000UNITS/ML 1ML VIAL/SYRINGE SQ ONE; +LR 1,000 ML IV ONE; -OXYC-517 PO; +ceFAZolin SOD 2 GM in IV 1 EA IV ONE
[2020-06-05] MEDS ORDERED: EPINEPHrine INJ 1 MG/ML 1ML AMP As Ordered ONE (10:10)
[2020-06-05] MEDS ORDERED: LIDOCAINE 1% MDV 20ML VIAL As Ordered ONE (10:10)
[2020-06-05] MEDS ORDERED: BUPIVACAINE LIPOSOME/PF 1.3% 20ML VIAL (13.3MG/ML)(EXPAREL)(C9290 PER1MG) As Ordered ONE (10:10)
[2020-06-05] MEDS ORDERED: BACITRACIN PWD 50,000 UNITS VIAL As Ordered ONE (10:10)
[2020-06-05] MEDS ORDERED: SCOPOLAMINE 1MG TRANSDERMAL PATCH As Ordered ONE (12:31)
[2020-06-05] MEDS ORDERED: LR 1,000 ML IV ONE (12:45)
[2020-06-05] MEDS ORDERED: SCOPOLAMINE 1MG TRANSDERMAL PATCH TOP ONE (13:00)
[2020-06-05] MEDS ORDERED: METOCLOPRAMIDE INJ 10MG/2ML VIAL (J2765 PER 1) As Ordered ONE (13:17)
[2020-06-05] MEDS ORDERED: propofoL 200 MG/20 ML VIAL As Ordered ONE (13:17)
[2020-06-05] MEDS ORDERED: fentaNYL 250 MCG/5 ML INJECTION (J3010) As Ordered ONE (13:17)
[2020-06-05] MEDS ORDERED: MIDAZOLAM INJ 2MG/2ML VIAL (J2250 PER 1MG) As Ordered ONE (13:17)
[2020-06-05] MEDS ORDERED: ONDANSETRON 4MG/2ML VIAL As Ordered ONE ×2 (13:17→16:53)
[2020-06-05] MEDS ORDERED: SUGAMMADEX SODIUM 500 MG/5 ML VIAL (BRIDION) As Ordered ONE (13:17)
[2020-06-05] MEDS ORDERED: dexameTHASONE 4 MG/ML 1ML VIAL (J1100 PER 1MG) As Ordered ONE (13:17)
[2020-06-05] MEDS ORDERED: LIDOCAINE 2% 100MG/5ML SDV (FOR ANES.) As Ordered ONE (13:17)
[2020-06-05] MEDS ORDERED: ROCURONIUM BROMIDE 50 MG/5 ML VIAL As Ordered ONE (13:17)
[2020-06-05] MEDS ORDERED: GLYCOPYRROLATE INJ 0.2 MG/ML 2 ML VIAL As Ordered ONE (14:18)
[2020-06-05] MEDS ORDERED: ACETAMINOPHEN 1000MG 100ML IV BTL (OFIRMEV) (J0131 PER 10MG) As Ordered ONE (16:16)
[2020-06-05] MEDS: LR 1,000 ML IV SCH ×2 (16:55→23:29)
--- NOTE | 2020-06-05 16:58 | POST-OPPD ---
Postoperative Procedure Note Date Of Procedure: Jun 05, 2020 PREOPERATIVE DIAGNOSIS: Right breast cancer. Acquired absence of breasts and nipples. POSTOPERATIVE DIAGNOSIS: same FINDINGS: bilateral mastectomy PROCEDURE: Chest contouring s/p bilateral mastectomies. SURGEON: Dr Ventura HOT FRAME TENDER: Dr Cooley ANESTHESIA: general SPECIMENS: none ESTIMATED BLOOD LOSS: none REPLACED: none DRAINS: 19 Fr round DEVYN x 3 COMPLICATIONS: none POSTOPERATIVE CONDITION: stable Dict: [id number] MILLICENT VENTURA DO Jun 05, 2020 16:58
[2020-06-05] MEDS ORDERED: ACETAMINOPHEN 500 MG TAB PO PRN (17:00)
[2020-06-05] MEDS ORDERED: MORPHINE 2 MG/ML 1ML VIAL (J2270) IV PRN (17:00)
[2020-06-05] MEDS ORDERED: ONDANSETRON 4MG/2ML VIAL IV PRN ×2 (17:00→18:00)
[2020-06-05] MEDS ORDERED: ACETAMINOPHEN TAB 650MG DOSE (2X325MG) PO PRN (17:15)
[2020-06-05] MEDS ORDERED: MONTELUKAST 10 MG TAB PO PRN (17:15)
--- NOTE | 2020-06-05 17:21 | CR.PDOC ---
General Date of Consultation: Jun 05, 2020 Consultation REASON FOR CONSULTATION/CHIEF COMPLAINT: Medical management HISTORY OF PRESENT ILLNESS: Patient is 45 years old female with past medical history of bilateral breast cancer, invasive ductal carcinoma grade 2, coronary artery diseases with NE in 2019, 5 cardiac stents, hyperlipidemia, hypertension was admitted to the hospital for bilateral mastectomy. Bilateral mastectomy was done on 06/05/20. I talked laborer [employer] Dr. Snyder, he told me that patient had NE in October 2018 with 5 stents placement. Patient denied fever, chills, nausea, chest pain, palpitations vomiting, diarrhea or dysuria ALLERGIES: Please see below. HOME MEDICATIONS: Please see below. PAST MEDICAL HISTORY: As HPI PAST SURGICAL HISTORY: Cardiac catheterization in 2019 FAMILY HISTORY: Father: NE at age 49 Mother: Hypertension, coronary artery diseases SOCIAL HISTORY: Marital status and/or living arrangements: Patient denied smoking, EtOH abuse, drug abuse REVIEW OF SYSTEMS: 10 point review system negative except as above PHYSICAL EXAMINATION: GENERAL APPEARANCE: NAD HEENT: no scleral icterus, no JVD, EOMI CARDIOVASCULAR: S1S2 LUNGS: CTA ABDOMEN: soft & not tender w palpitation MUSCULOSKELETAL: no cyanosis, no swelling INTEGUMENT: no generalized palor NEUROLOGICAL: cranial nerve function from 2-12 intact intact, follows commands, speech not dysarthric LABORATORY DATA: Please see below. ASSESSMENT/PLAN: Patient is 45 years old female with past medical history of bilateral breast cancer, invasive ductal carcinoma grade 2, coronary artery diseases with NE in 2019, 5 cardiac stents, hyperlipidemia, hypertension was admitted to the hospital for bilateral mastectomy. Bilateral mastectomy was done on 06/05/20. I talked lab[employer] Dr. Snyder, he told me that patient had NE in October 2018 w ith 5 stents placement. Patient denied fever, chills, nausea, chest pain, palpitations vomiting, diarrhea or dysuria Coronary artery diseases Continue aspirin, continue beta ena Patient denied any chest pain Hypertension Continue home cardioprotective medication Hyperlipidemia Continue statin Status post bilateral mastectomy Pain management Vital Signs/I&O Vital Signs Date Time Temp Pulse Resp B/P (MAP) Pulse Ox O2 Delivery O2 Flow Rate FiO2 06/05/20 16:52 84 18 120/74 (89) 94 Room Air 06/05/20 16:42 97.4 Allergies Coded Allergies: SEASONAL ALLERGIES (Verified Allergy, Unknown, 05/28/20) Home Medications Scheduled Ascorbic Acid (Vitamin C) 500 Mg Capsule, 500 MG PO DAILY, (Reported) Aspirin (Aspir 81) 81 Mg Tablet.dr, 81 MG PO DAILY, (Reported) Atorvastatin Calcium (Atorvastatin Calcium) 80 Mg Tablet, 80 MG PO QHS, (Reported) Calcium Carbonate/Vitamin D3 (Calcium 600 + Vit D 400 Softgl) 1 Each Capsule, 1 CAP PO Q2D, (Reported) Cannabidiol (Cbd Oil) Btl, 1 ML PO 3-4XDP, (Reported) Cetirizine HCl (ZyrTEC) 10 Mg Capsule, 10 MG PO DAILY, (Reported) Cyanocobalamin (Vitamin B-12) (Vitamin B-12) 1,000 Mcg Tablet, 1,000 MCG PO DAILY, (Reported) Lactobacillus Combo No.10 (Probiotic) 1 Each Capsule, 1 CAP PO DAILY, (Reported) Magnesium Citrate (Magnesium Citrate) 125 Mg Capsule, 125 MG PO BID, (Reported) Metoprolol Tartrate (Metoprolol Tartrate) 25 Mg Tablet, 25 MG PO BID, (Reported) Mv-Min/Iron/Folic/Calcium/Vitk (Women's Multivitamin Tablet) 1 Each Tablet, 1 TAB PO DAILY, (Reported) [place]-3/Dha/Epa/Fish Oil ([place]-3 Fish Oil 1,000 mg Sfgl) 1,000 Mg Capsule, 1,000 MG PO DAILY, (Reported) Scheduled PRN Azelastine HCl (Azelastine HCl) 0.1% [place].pump, 2 SPRAY NA BID PRN for ALLERGIES, (Reported) Calcium Carbonate (Tums) 200 Mg Tab.chew, 500 MG PO ACHS PRN for HEARTBURN, (Reported) Fluticasone Propionate (Flonase Allergy Relief) 9.9 Ml [place].susp, 1 SPRAY NA BID PRN for ALLERGIES, (Reported) Ketotifen Fumarate ([place]) 0.025% 10ML Drops, 1 DROP OU BID PRN for ALLERGIES, (Reported) Montelukast Sodium (Montelukast Sodium) 10 Mg Tablet, 10 MG PO DAILY PRN for ALLERGIES, (Reported) Nitroglycerin (Nitroglycerin) 0.4 Mg Tab.subl, 1 TAB SL NITRO PRN for CHEST PAIN, (Reported) Miscellaneous Medications Cholecalciferol (Vitamin D3) (Vitamin D3) 1,000 Unit Tablet, 5,000 UNITS PO, (Reported) Ubidecarenone (Co Q-10) 200 Mg Capsule, 100 MG PO, (Reported) ALICIA LYNN DO Jun 05, 2020 17:21
[2020-06-05] MEDS ORDERED: HYDROMORPHONE HCL 0.5 MG/ 0.5 ML SYRINGE (J1170 PER 1) IV PRN (18:00)
[2020-06-05] MEDS ORDERED: METOCLOPRAMIDE INJ 10MG/2ML VIAL (J2765 PER 1) IV PRN (18:00)
[2020-06-05] MEDS ORDERED: oxyCODONE 5MG TAB PO PRN (18:00)
[2020-06-05] MEDS ORDERED: LR 1,000 ML IV SCH (18:00)
[2020-06-05] MEDS ORDERED: fentaNYL 100 MCG/2 ML INJECTION (J3010) IV PRN (18:00)
[2020-06-05 18:20] VITALS: BP 132/74
[2020-06-05 18:50] VITALS: BP 133/73
[2020-06-05 19:20] VITALS: BP 131/74
[2020-06-05] MEDS: ceFAZolin SOD 2 GM in IV 1 EA IV SCH (20:10)
[2020-06-05] MEDS: METOPROLOL TART 25 MG TABLET PO SCH (20:11)
[2020-06-05] MEDS: HEPARIN SOD (PORCINE) 5000UNITS/ML 1ML VIAL/SYRINGE SC SCH (20:13)
[2020-06-05] MEDS: oxyCODONE 5MG TAB PO PRN (20:18)
[2020-06-05 20:20] VITALS: BP 128/73
[2020-06-05] MEDS ORDERED: ATORVASTATIN 20 MG TAB PO SCH (21:00)
[2020-06-05 21:20] VITALS: BP 130/69
[2020-06-05 22:20] VITALS: BP 126/68
[2020-06-06] MEDS: ceFAZolin SOD 2 GM in IV 1 EA IV SCH ×3 (04:12→18:40)
[2020-06-06 05:54] LABS: HEMATOCRIT 33.2 % (36.0-47.0); HEMOGLOBIN 11.4 g/dl (12.0-15.5); MEAN CORPUSCULAR HGB CONC 34.3 g/dl (32.0-36.5); MEAN CORPUSCULAR VOLUME 87.4 fl (80.0-96.0); PLATELET COUNT, AUTOMATED 205 10^3/uL (150-450); WHITE BLOOD COUNT 14.1 10^3/uL (4.0-10.0)
[2020-06-06 06:00] VITALS: BP 109/57
[2020-06-06 06:20] LABS: ALBUMIN 2.9 GM/DL (3.2-5.2); ALT/SGPT 22 U/L (12-78); BILIRUBIN,TOTAL 0.8 MG/DL (0.2-1.0); BLOOD UREA NITROGEN 8 MG/DL (7-18); CALCIUM LEVEL 8.3 MG/DL (8.5-10.1); CARBON DIOXIDE LEVEL 23 MEQ/L (21-32); CHLORIDE LEVEL 103 MEQ/L (98-107); CREATININE FOR GFR 0.82 MG/DL (0.55-1.30); GLOMERULAR FILTRATION RATE > 60.0 (>58); GLUCOSE, FASTING 193 MG/DL (70-100); MAGNESIUM LEVEL 1.8 MG/DL (1.8-2.4); POTASSIUM SERUM 4.1 MEQ/L (3.5-5.1); SODIUM LEVEL 135 MEQ/L (136-145); TOTAL PROTEIN 5.9 GM/DL (6.4-8.2)
[2020-06-06] MEDS ORDERED: ASPIRIN 81 MG ENTERIC TAB PO SCH (09:00)
[2020-06-06] MEDS: HEPARIN SOD (PORCINE) 5000UNITS/ML 1ML VIAL/SYRINGE SC SCH (09:48)
[2020-06-06] MEDS: oxyCODONE 5MG TAB PO PRN (09:51)
[2020-06-06 10:00] VITALS: BP 87/46
[2020-06-06 10:13] VITALS: BP 88/46
[2020-06-06] MEDS: METOPROLOL TART 25 MG TABLET PO SCH (10:13)
[2020-06-06] MEDS ORDERED: NS 1,000 ML IV ONE ×2 (10:15→14:15)
[2020-06-06] MEDS ORDERED: LR 1,000 ML IV SCH (12:15)
[2020-06-06 14:00] VITALS: BP 84/58
--- NOTE | 2020-06-06 15:52 | IPNPDOC ---
Subjective General Date Seen: Jun 06, 2020 Subject Chief Complaint/History The patient is a 45-year-old female admitted with a reason for visit of Right Breast Cancer,Malignant Neoplasm Of Nipple... Patient s/p bilateral mastectomy with chest contouring POD 1. Pain controlled. Tolerating diet. Current Medications Current Medications Current Medications Medications (Trade) Dose Ordered Sig/Cori Route PRN Reason Start Time Stop Time Status Last Admin Dose Admin Acetaminophen (Tylenol Tab) 500 mg Q4HP PRN PO MILD PAIN (PS 1-4) 06/05/20 17:00 Acetaminophen (Tylenol Tab) 650 mg Q4H PRN PO PAIN OR FEVER 06/05/20 17:15 Aspirin (Ecotrin) 81 mg DAILY PO 06/06/20 09:00 06/06/20 09:48 Atorvastatin Calcium (Lipitor) 80 mg QHS PO 06/05/20 21:00 06/05/20 20:11 Cefazolin Sodium/ Dextrose 2 gm/IV Miscellaneous Supplies 50 ml @ 75 mls/hr Q8H IV 06/05/20 20:00 06/06/20 20:00 06/06/20 11:37 Fentanyl Citrate (Sublimaze) 25 mcg Q5MP PRN IV PAIN LEVEL 5-10 06/05/20 18:00 06/05/20 19:00 DC Heparin Sodium (Porcine) (Heparin) 5,000 units Q12H SC 06/05/20 21:00 06/06/20 09:48 Hydromorphone HCl (Dilaudid) 0.4 mg Q5MP PRN IV PAIN LEVEL 4-7 06/05/20 18:00 06/05/20 19:00 DC Lactated Ringer's 1,000 ml @ 75 mls/hr [id number] IV 06/05/20 16:55 06/06/20 12:14 DC 06/05/20 23:29 Lactated Ringer's 1,000 ml @ 75 mls/hr [id number] IV 06/06/20 12:15 06/06/20 13:03 Lactated Ringer's 1,000 ml @ 100 mls/hr Q10H IV 06/05/20 18:00 06/05/20 19:00 DC Metoclopramide HCl (REGLAN INJection) 10 mg Q6HP PRN IV NAUSEA OR VOMITING 06/05/20 18:00 06/05/20 19:00 DC Metoprolol Tartrate (Lopressor) 25 mg BID PO 06/05/20 21:00 06/05/20 20:11 Montelukast Sodium (Singulair) 10 mg DAILYPRN PRN PO ALLERGIES 06/05/20 17:15 Morphine Sulfate (Morphine Sulfate Inj) 2 mg Q3H PRN IV SEVERE PAIN (PS 8-10) 06/05/20 17:00 Ondansetron HCl (ZOFRAN INJection) 4 mg Q4H PRN IV NAUSEA OR VOMITING 06/05/20 17:00 06/05/20 16:55 Ondansetron HCl (ZOFRAN INJection) 4 mg Q4HP PRN IV NAUSEA OR VOMITING 06/05/20 18:00 06/05/20 19:00 DC Oxycodone HCl (Roxicodone, Oxyir) 5 mg ASDIRECTED PRN PO PAIN LEVEL 1-4 06/05/20 18:00 06/05/20 19:00 DC Oxycodone HCl (Roxicodone, Oxyir) 5 mg Q4HP PRN PO PAIN LEVEL 4-7 06/05/20 17:00 06/06/20 09:51 Allergies Coded Allergies: SEASONAL ALLERGIES (Verified Allergy, Unknown, 05/28/20) Objective Physical Examination Examination GENERAL APPEARANCE:Patient seen, laying in bed, awake, alert, and oriented. Comf ortable, in no acute distress. SKIN: Warm and moist. BREAST: Right and left soft, non-tender incisions intact. DEVYN drains: 25L75R cc/24 hr. NAC: Viable, warm, symmetrical, mild post-op ecchymosis, no expanding hematoma. Flaps are viable, warm. LUNGS: Clear to auscultation bilaterally. No wheezing appreciated. HEART: No chest wall abnormalities. Regular rate and rhythm with no murmurs appreciated. EXTREMITIES: No edema identified. No calf tenderness. Vital Signs Vital Signs Date Time Temp Pulse Resp B/P (MAP) Pulse Ox O2 Delivery O2 Flow Rate FiO2 06/06/20 14:00 98.8 74 16 84/58 (67) 95 Room Air I&Os I&O- Last 24 Hours up to 6 AM 06/06/20 06:00 Intake Total 5188 ml Output Total 565 ml Balance 4623 ml Laboratory Data Labs 24H Laboratory Tests 2 06/06/20 05:27: Nucleated Red Blood Cells % (auto) 0.0, Anion Gap 9, Glomerular Filtration Rate > 60.0, Calcium Level 8.3L, Magnesium Level 1.8, Total Bilirubin 0.8, Aspartate Amino Transf (AST/SGOT) 17, Alanine Aminotransferase (ALT/SGPT) 22, Alkaline Phosphatase 78, Total Protein 5.9L, Albumin 2.9L, Albumin/Globulin Ratio 1.0L CBC/BMP Laboratory Tests 06/06/20 05:27 Impression S/p bilateral mastectomies with chest contouring. Flaps viable. Continue with drain monitoring. D/c pending. F/up plastic surgery office next week. Support bra. No heavy lifting. Plan / VTE VTE Prophylaxis Ordered?: Yes MILLICENT VENTURA DO Jun 06, 2020 15:52
--- NOTE | 2020-06-06 16:31 | IPNPDOC ---
Text Note Date of Service The patient was seen on 06/06/20. NOTE Subjective: No any acute events overnight. In the morning patient developed h ypotension with blood pressure 88/55, asymptomatic. Objective: GENERAL APPEARANCE: NAD HEENT: no scleral icterus, no JVD, EOMI CARDIOVASCULAR: S1S2 LUNGS: CTA ABDOMEN: soft & not tender w palpitation MUSCULOSKELETAL: no cyanosis, no swelling INTEGUMENT: no generalized palor NEUROLOGICAL: cranial nerve function from 2-12 intact intact, follows commands, speech not dysarthric ASSESSMENT/PLAN: Patient is 45 years old female with past medical history of bilateral breast cancer, invasive ductal carcinoma grade 2, coronary artery diseases with FL in 2019, 5 cardiac stents, hyperlipidemia, hypertension was admitted to the hospital for bilateral mastectomy. Bilateral mastectomy was done on 06/05/20. I talked supervisor char house Dr. Snyder, he told me that patient had FL in October 2018 with 5 stents placement. Patient denied fever, chills, nausea, chest pain, palpitations vomiting, diarrhea or dysuria Coronary artery diseases Continue aspirin, continue beta ena Patient denied any chest pain Hypertension Blood pressure medications on hold due to hypotension Hypotension Most likely secondary to anesthesia IV fluid Hyperlipidemia Continue statin Status post bilateral mastectomy Pain management VS,Fishbone, I+O VS, Fishbone, I+O Laboratory Tests 06/06/20 05:27 Vital Signs Date Time Temp Pulse Resp B/P (MAP) Pulse Ox O2 Delivery O2 Flow Rate FiO2 06/06/20 14:00 98.8 74 16 84/58 (67) 95 Room Air I&O- Last 24 Hours up to 6 AM 06/06/20 06:00 Intake Total 5188 ml Output Total 565 ml Balance 4623 ml ALICIA LYNN DO Jun 06, 2020 16:31
[2020-06-06 18:00] VITALS: BP 102/60
[2020-06-06] MEDS ORDERED: OXYC-517 PO (18:43)
--- NOTE | 2020-06-06 21:43 | IPNPDOC ---
Subjective General Date Seen: Jun 06, 2020 (7 am) Subject Chief Complaint/History The patient is a 45-year-old female admitted with a reason for visit of Right Breast Cancer, s/p b/l simple mastectomy with R SLNBx POD1. no acute issues over night Drains bloody this AM Patient is on ASA Current Medications Current Medications Current Medications Medications (Trade) Dose Ordered Sig/Cori Route PRN Reason Start Time Stop Time Status Last Admin Dose Admin Acetaminophen (Tylenol Tab) 500 mg Q4HP PRN PO MILD PAIN (PS 1-4) 06/05/20 17:00 Acetaminophen (Tylenol Tab) 650 mg Q4H PRN PO PAIN OR FEVER 06/05/20 17:15 Aspirin (Ecotrin) 81 mg DAILY PO 06/06/20 09:00 06/06/20 09:48 Atorvastatin Calcium (Lipitor) 80 mg QHS PO 06/05/20 21:00 06/05/20 20:11 Cefazolin Sodium/ Dextrose 2 gm/IV Miscellaneous Supplies 50 ml @ 75 mls/hr Q8H IV 06/05/20 20:00 06/06/20 20:00 06/06/20 18:40 Fentanyl Citrate (Sublimaze) 25 mcg Q5MP PRN IV PAIN LEVEL 5-10 06/05/20 18:00 06/05/20 19:00 DC Heparin Sodium (Porcine) (Heparin) 5,000 units Q12H SC 06/05/20 21:00 06/06/20 09:48 Hydromorphone HCl (Dilaudid) 0.4 mg Q5MP PRN IV PAIN LEVEL 4-7 06/05/20 18:00 06/05/20 19:00 DC Lactated Ringer's 1,000 ml @ 75 mls/hr [id number] IV 06/05/20 16:55 06/06/20 12:14 DC 06/05/20 23:29 Lactated Ringer's 1,000 ml @ 75 mls/hr [id number] IV 06/06/20 12:15 06/06/20 13:03 Lactated Ringer's 1,000 ml @ 100 mls/hr Q10H IV 06/05/20 18:00 06/05/20 19:00 DC Metoclopramide HCl (REGLAN INJection) 10 mg Q6HP PRN IV NAUSEA OR VOMITING 06/05/20 18:00 06/05/20 19:00 DC Metoprolol Tartrate (Lopressor) 25 mg BID PO 06/05/20 21:00 06/05/20 20:11 Montelukast Sodium (Singulair) 10 mg DAILYPRN PRN PO ALLERGIES 06/05/20 17:15 Morphine Sulfate (Morphine Sulfate Inj) 2 mg Q3H PRN IV SEVERE PAIN (PS 8-10) 06/05/20 17:00 Ondansetron HCl (ZOFRAN INJection) 4 mg Q4H PRN IV NAUSEA OR VOMITING 06/05/20 17:00 06/05/20 16:55 Ondansetron HCl (ZOFRAN INJection) 4 mg Q4HP PRN IV NAUSEA OR VOMITING 06/05/20 18:00 06/05/20 19:00 DC Oxycodone HCl (Roxicodone, Oxyir) 5 mg ASDIRECTED PRN PO PAIN LEVEL 1-4 06/05/20 18:00 06/05/20 19:00 DC Oxycodone HCl (Roxicodone, Oxyir) 5 mg Q4HP PRN PO PAIN LEVEL 4-7 06/05/20 17:00 06/06/20 09:51 Allergies Coded Allergies: SEASONAL ALLERGIES (Verified Allergy, Unknown, 05/28/20) Objective Physical Examination Examination GENERAL APPEARANCE:Patient seen, laying in bed, awake, alert, and oriented. Comfortable, in no acute distress. SKIN: Warm . BREAST: surgically absent b/l , mastectomy incisions well approximated, no drainage from incision sites. there are 2 drains on R with sanguinous drainage and 1 drain on left. R HEENT: Normocephalic NECK: Supple LUNGS: breathing comfortably on room air HEART: no tachycardia ABDOMEN: Abdomen nondistended EXTREMITIES: good range of motion in upper extremities Vital Signs Vital Signs Date Time Temp Pulse Resp B/P (MAP) Pulse Ox O2 Delivery O2 Flow Rate FiO2 06/06/20 18:00 98.8 85 18 102/60 (74) 96 Room Air I&Os I&O- Last 24 Hours up to 6 AM 06/06/20 06:00 Intake Total 5188 ml Output Total 565 ml Balance 4623 ml Laboratory Data Labs 24H Laboratory Tests 2 06/06/20 05:27: Nucleated Red Blood Cells % (auto) 0.0, Anion Gap 9, Glomerular Filtration Rate > 60.0, Calcium Level 8.3L, Magnesium Level 1.8, Total Bilirubin 0.8, Aspartate Amino Transf (AST/SGOT) 17, Alanine Aminotransferase (ALT/SGPT) 22, Alkaline Phosphatase 78, Total Protein 5.9L, Albumin 2.9L, Albumin/Globulin Ratio 1.0L CBC/BMP Laboratory Tests 06/06/20 05:27 Impression 45 F with on FL 10/2018( s/p stents), on ASA indefinitely, now with Dx of R breast CA, s/p b/l simple mastectomy w R SLNBx POD1 - monitor drain output, empty and record output - continue abx 24 h postop, no abx post dc - monitor vitals - will reassess in PM, if drain color improves likely will d/c home - appreciate Medicine help with management of this patient Plan / VTE VTE Prophylaxis Ordered?: Yes MARCO WALTON DO Jun 06, 2020 18:45
--- NOTE | 2020-06-07 14:10 | ROOPDOC ---
[facility] Report Of Operation Report of Operation DATE OF PROCEDURE: 06/05/20 PREPROCEDURE DIAGNOSES: Right breast cancer POSTPROCEDURE DIAGNOSES: Right breast cancer with at least one right axillary lymph node positive for cancer PROCEDURE: bilateral breast mastectomy without reconstruction with chest contouring, right sentinel lymph nodes biopsy, excision of right axillary mass, bilateral chest wall muscle block SURGEON: Marco Cooley BRAKE OPERATOR HEAVY DUTY: Cheyenne Ellis ANESTHESIA: general ESTIMATED BLOOD LOSS: Approximately 100 mL. COMPLICATIONS: none REMARKS: Right axillary hard mass was positive for a lymph node with cancer on frozen section DESCRIPTION OF PROCEDURE: INDICATIONS: Ms. Troy is a 45 year old lady with PMHx of MS 10/2018, who was found to have palpable right breast mass in upper outer quadrant/ She had b/l diagnostic mammogram done which confirmed presence of the mass. Sonographic correlate was identified and US guided biopsy was done. 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 There were no palpable lymph nodes. MRI of the breast was done and showed no axillary lymphadenopathy. There was suspicious area in the left breast which was felt to correspond to the band of tissue seen on mammogram. Left stereotactic biopsy was done and pathology of the tissue came back benign. At this point, there was no need for left axilla evaluation. Patient decided that she wants to have b/l simple mastectomy with no reconstruction and right sentinel lymph node biopsy due to her history of MS one year ago. She was counseled by the plastic surgery team on immediate and delayed reconstructive options. Due to recent MS and cardiac stents, patient was told to be on ASA. Her technical report writer recommended not stopping ASA for the surgery. Risks and possible complications of surgical procedure including bleeding especially since patient is on ASA, infection and injury to surrounding structures were explained to the patient and she wished to proceed. Consent was signed. Subcutaneous heparin 5000 units was given to patient in the preop area. Lymphoscintigraphy was reviewed preoperatively and the tracer was found in the axilla. Doctor Ellis marked the patient in the preop area to achieve best cosmetic chest wall contouring. DETAILS: Patient was taken to the operating room and placed supine on the operating room table. Pillow was placed under her knees. Foam was placed under her heels. A sign in was called stating patients name, date of and the procedure to be done. Preoperative antibiotics were infused. Smooth induction of general anesthesia was done. Patients hands were extended on arm rests. Care was taken not to over extend patients arms. Jeter catheter was placed. Pillow was placed under the knees and a foam was placed under the hills. Sequential compression devices were placed and assured to function correctly. Patients both breasts and axillas were prepped and draped in the usual fashion. Neoprobe was used to amy the site of maximal signal in the right axilla. The sites of Hydromark clips in both breasts were marked with use of intraop ultrasound. Appropriate time out was done and patients name, date of , and the procedure to be done were confirmed. Procedure was started with left simple mastectomy. The incision was made along the previously marked by Doctor Ellis border to achieve the scar at the inframammary fold. Subcutaneous flaps were developed using electrocautery dissection. Nipple areolar complex was incorporated into the skin which was excised. A black double stitch was placed in the tissues at the previously marked location of Hydromark clip, as the overlying skin was part of mastectomy flap. Dissection was carried toward the inframammary fold inferiorly, toward sternum medially, toward inferior aspect of clavicle superiorly and toward the axilla laterally. Doctor Bishop assistance was critical in allowing fast progr ession of the case and decreasing anesthesia time. Breast tissue was dissected from the muscle posteriorly and pectoralis fascia was taken with the specimen. The dissection was carried all the way to the Tail of [place] making sure that axilla is not entered. Breast specimen was marked for orientation with short, single, black stitch marking superior edge of mastectomy and long, single, black stitch marking latera edge of mastectomy. The specimen was weighted and weight of 635 grams was reported. The specimen was then placed in formaldehyde, and passed to pathology. Mastectomy cavity was irrigated and hemostasis was achieved. Doctor Bishop assistance was critical in achieving adequate hemostasis and progressing the case safely. Left pectoralis muscle block was done with Exparel. 19 F Kayden drain was placed into the mastectomy site through separate lateral, stab incision and secured in place with suture. At this time, Doctor Ellis took over chest wall contouring of the left mastectomy site and closed the mastectomy in the usual fashion. Please refer to Doctor Bishop procedure note for details. My attention was then turned to the right side which contained the right upper outer quadrant cancer. The incision was made along the previously marked by Doctor Caleb holman to achieve the scar at the inframammary fold. Subcutaneous flaps were developed using electrocautery dissection. Nipple areolar complex was incorporated into the skin which was excised. A black double stitch was placed in the tissues at the previously marked location of Hydromark clip, as the overlying skin was part of mastectomy flap. Dissection was carried toward the i nframammary fold inferiorly, toward sternum medially, toward inferior aspect of clavicle superiorly and toward the axilla laterally. Breast tissue was dissected from the muscle posteriorly and pectoralis fascia was taken with the specimen. The dissection was carried all the way to the Tail of [place] making sure that axilla is not entered prematurely. Breast specimen was marked for orientation with short, single, black stitch marking superior edge of mastectomy and long, single, black stitch marking latera edge of mastectomy. The specimen was weighted and weight of 577 grams was reported. The specimen was then placed in formaldehyde, and passed to pathology. Mastectomy cavity was irrigated and hemostasis was achieved. Next, our attention was turned toward the right axilla which was accessed from the mastectomy site. Clavipectoral fascia was opened over the site of maximum Neoprobe signal. Area of high signal was identified at the lateral border of the pectoralis major muscle and under the pectoralis muscle. Grayling lymph node #1 was identified and 10 second ex-vivo count was [address]782. This was Level 1 lymph node. Second sentinel lymph node was identified and the 10 second ex-vivo count was 4826. This was Level 2 lymph node. There were two palpable level 1 nodes identified with no radioactive signal. Those nodes were sent for evaluation and palpable lymph node #3 and palpable lymph node #4 respectively. Upon final palpation of the axilla around the lymph node #3 and #4, which were in lateral deep aspect of the axilla, anterior to latissimus dorsi muscle, away from the pectoralis muscle, there was a harder mass like area identified. This area was carefully dissected from adjacent tissues, including vessel like structures adjacent to this harder mass. No direct tributaries were seen from the vessel like structure to the mass. The excised tissue was called right axillary mass and was sent for frozen section and was identifies as a lymph node containing cancer. Since the status of remaining lymph nodes was unknown at this time, decision to continue with scheduled procedure and not perform to perform axillary dissection was made, as the patient may qualify for adjuvant radiation therapy per AMAROS trial. All specimens were labeled appropriately and sent to pathology. 10 second count of the background was 30. Doctor Bishop assistance with identification of sentinel lymph nodes and dissection of the axillary mass was again critical to avoid injury to surrounding nerves. The axilla was irrigated and hemostasis was achieved. Right pectoralis muscle anterior block was done with Exparel. Two 19 F Kayden drain were placed into the right axilla and mastectomy site through separate lateral, stab incisions and secured in place with suture. At this time, Doctor Ellis took over chest wall contouring of the right mastectomy site and closed the mastectomy in the usual fashion. Please refer to Doctor Bishop procedure note for details. Surgical glue was applied to the top of the incision. Prineo skin closing system dressing was applied next to the incision. Surgical gauze was placed over the incision and the surgical bra was placed. Final instruments and sponge count were correct. Jeter catheter was removed before leaving the operating room. Patient emerged from general anesthesia without any problems. Patient tolerated procedure well and was taken to recovery unit in stable condition. MARCO COOLEY DO Jun 07, 2020 14:10
--- NOTE | 2020-06-10 09:21 | REP ---
RIGHT BREAST LYMPOSCINTIGRAPHY The procedure was performed by Blanka Ayala [facility], under the direct supervision of Dr. Wilhelm. The images were reviewed with Dr. Wilhelm prior to dictation. The risks and benefits of the procedure were explained to the patient and an informed consent was obtained both verbally and written. Directly prior to the start of the procedure, a formal time-out was completed in the procedure room. Using a topical anesthetic and sterile technique, 1.015 mCi of Technetium-99m filtered sulfur colloid was injected subdermally in eight fractionated periareolar injections. Images obtained one hour after injection show four foci with increased uptake in the right axillary tail. IMPRESSION: Increased uptake in the right axillary tail of four foci. MTDD
--- NOTE | 2020-06-10 09:26 | RO ---
DATE OF OPERATION: 06/05/2020 PREOPERATIVE DIAGNOSIS: Right breast cancer, acquired absence of breast and nipples bilateral. POSTOPERATIVE DIAGNOSIS: Right breast cancer, acquired absence of breast and nipples bilateral. FINDINGS: Bilateral mastectomy. PROCEDURE: Chest contouring status post bilateral mastectomies. ATTENDING SURGEON: Dr. Ellis BICYCLE SERVICE TECHNICIAN: Dr. Cooley ANESTHESIA: General. SPECIMEN: No specimen in this part of procedure. BLOOD LOSS: None. REPLACEMENTS; None. DRAINS: Three drains, 19-Botswanan, round, Marc-Jas (JPs). COMPLICATIONS: None. DESCRIPTION OF PROCEDURE: This is a 45-year-old female who was diagnosed with right breast cancer, scheduled for bilateral mastectomies with right axillary sentinel node sampling. Patient does not want to have a formal reconstruction. She would like for us to create a very clean mastectomy site with lateral chest wall rearrangement for her to be able to have external prosthesis with a bra. Risks, benefits, and alternatives were discussed with the patient, and she would like to proceed. She is a good candidate for mastectomy with a lower incision in the inframammary line, which is 21 cm from the sternal notch. She was marked in the preoperative holding area according to the pattern, and then she was ready to proceed. The mastectomy part of procedure is going to be dictated by Dr. Cooley. The initial incision was carried out according to our markings with the superior incision according to the inframammary fold (IMF) at 21 cm. After the mastectomy portion was completed, the flaps were re-examined. They both were in good perfusion. We started our closure on the left side. That flap was slightly thinner, but it did have good perfusion and back bleeding. The pectoralis muscle was in good condition, so the flap was rearranged for closure with no tension, and excess tissue was re-excised to contour the chest. We opted not to do the liposuction of the lateral chest at this time due to the possibility of axillary node dissection that is pending, to minimize the distortion of the area. The closure was performed with 3-0 Monocryl sutures and the 4-0 Monocryl sutures as well. One 19-Botswanan round DEVYN drain was placed through a separate stab incision on the left. The right side was closed in a similar fashion also. Excess tissue resected, creating good contour, symmetrical to the left side; however, no liposuction to the chest wall was done due to the possibly pending axillary node dissection. The two 19-Botswanan round drains were placed through the separate stab incisions, on the right side one into the axilla and one at the inferior chest. Also Exparel was infiltrated in both pectoralis muscles, and the closure was carried out with 3-0 Monocryl and 4-0 Monocryl sutures. Prineo dressing and bulky dressing were applied with a surgical bra. Patient was extubated in the operating room without any difficulty. She was transferred to the recovery room in stable condition. EARL
[2020-06-27] MEDS ORDERED: FERR325T3 PO (13:16)
== END 2020-06-06 19:47 | disposition home or self-care (01) ==
LOC: M SDC 09:35 → M MSPAV 17:13 → M SDC 18:19 → M MSPAV 18:19 → M SDC 06-06 19:47 → M MSPAV 06-06 19:47
PROVIDERS: ADMIT Surgery; ATTEND Surgery
DX: C50.411 Malignant neoplasm of upper-outer quadrant of right female breast (principal); C77.3 Secondary and unspecified malignant neoplasm of axilla and upper limb lymph nodes; I25.2 Old myocardial infarction; Z98.61 Coronary angioplasty status; Z79.82 Long term (current) use of aspirin
CPT/HCPCS: 15839; 19303; 36415; 38525; 64450; 78195; 80053; 81025; 83735; 85027; 86850; 86900; 86901; 88305; 88307; 96361; 96365; 96366; 96372; A9541; C9290; J0131; J0690; J1100; J1644; J2250; J2405; J2765; J3010

== ENCOUNTER → 2020-06-19 | Outpatient (CLI) | payer OTHER ==
[~2020-06-19] MED LIST changes: +FERR325T3 PO; -HEPARIN SOD (PORCINE) 5000UNITS/ML 1ML VIAL/SYRINGE SQ ONE; -LR 1,000 ML IV ONE; +OXYC-517 PO; -ceFAZolin SOD 2 GM in IV 1 EA IV ONE
--- NOTE | 2020-06-19 11:42 | RADONC.CN ---
Radiation Oncology Hx/Consult Radiation Oncology Consult Date of Service: Jun 19, 2020 Pt Identifier Earnestine Troy is a 45 year old female with prior CAD/[place] and [id number] ER/CT+ HER2- Grade 3 KONSTANTIN+ stage IIB right breast IDC. She underwent BL mastectomy and right ALND on 06/05/[address] Cooley. She has opted against reconstruction and chemotherapy is pending. She is seen today to discuss PMRT. Diagnosis/Treatment History Oncologic History Summer 2019 presented with palpable right upper outer quadrant mass she first noticed in August 2019. She underwent US biopsy on 03/28/20 which showed IDC. EOD MRI on 04/07/20 revealed the right breast mass and no concerning CHANNEL DEVELOPMENT DIRECTOR in the axilla, there was also concern for enhancement in the left breast. Patient underwent BL mastectomy on 06/05/20, right SLNB was positive and ALND was completed. Final pathology showed [id number] ER/CT+ HER2- Grade 3, 4/9 nodes, KONSTANTIN+. Left breast specimen was cancer free. She has declined reconstruction. Interval History Feels well. Incisions healing. Has mild swelling and heaviness of RUE. Massage and elevation help. Not wearing a sleeve. No fevers or chills. Seeing Dr. Keith later this week regarding chemotherapy plan. Has [place] last spring, was unexpected. Had multiple stents placed. Under normal circumstances she is very active. Does not smoke or drink. Past Medical History: CAD/[place] stent placement october 2018 Kidney stones HTN Breast History 29 year OCP use @ 25 Menses @ 12 LMP 06/17/20 Pre-menopausal Past Surgical History: As above Family History: Sister- melanoma Paternal grandfather - prostate cancer Paternal grandmother - colon cancer Social History: Never smoker Does not drink Allergies / Meds Allergies: Coded Allergies: SEASONAL ALLERGIES (Verified Allergy, Unknown, 05/28/20) Home Meds Active Scripts Oxycodone HCl (Oxycodone HCl) 5 Mg Tablet, 5 MG PO QIDP PRN for pain MDD 4 Tablet(s) for 5 Days, #20 TAB Prov:MARCO COOLEY DO 06/06/20 Reported Medications Cannabidiol (CBD OIL) Btl, 1 ML PO 3-4XDP 05/28/20 Lactobacillus Combo No.10 (Probiotic) 1 Each Capsule, 1 CAP PO DAILY, CAP 05/28/20 Ubidecarenone (Co Q-10) 200 Mg Capsule, 100 MG PO, CAP 05/28/20 Cholecalciferol (Vitamin D3) (Vitamin D3) 1,000 Unit Tablet, 5000 UNITS PO, TAB 05/28/20 Calcium Carbonate (Tums) 200 Mg Tab.chew, 500 MG PO ACHS PRN for HEARTBURN, CHW 02/16/19 Cyanocobalamin (Vitamin B-12) (Vitamin B-12) 1,000 Mcg Tablet, 1000 MCG PO DAILY, TAB 02/16/19 Magnesium Citrate (Magnesium Citrate) 125 Mg Capsule, 125 MG PO BID, CAP 02/16/19 Montelukast Sodium (Montelukast Sodium) 10 Mg Tablet, 10 MG PO DAILY PRN for ALLERGIES, TAB 02/16/19 Ascorbic Acid (Vitamin C) 500 Mg Capsule, 500 MG PO DAILY 02/16/19 Mv-Min/Iron/Folic/Calcium/Vitk (Women's Multivitamin Tablet) 1 Each Tablet, 1 TAB PO DAILY, TAB 02/16/19 Calcium Carbonate/Vitamin D3 (Calcium 600 + Vit D 400 Softgl) 1 Each Capsule, 1 CAP PO Q2D, CAP 02/16/19 [place]-3/Dha/Epa/Fish Oil ([place]-3 Fish Oil 1,000 mg Sfgl) 1,000 Mg Capsule, 1000 MG PO DAILY 02/16/19 Ketotifen Fumarate (Alaway) 0.025% 10ML Drops, 1 DROP OU BID PRN for ALLERGIES 02/16/19 Fluticasone Propionate (Flonase Allergy Relief) 9.9 Ml Fyffe.susp, 1 SPRAY NA BID PRN for ALLERGIES 02/16/19 Azelastine HCl (Azelastine HCl) 0.1% Fyffe.pump, 2 SPRAY NA BID PRN for ALLERGIES 02/16/19 Cetirizine HCl (ZyrTEC) 10 Mg Capsule, 10 MG PO DAILY, CAP 02/16/19 Nitroglycerin (Nitroglycerin) 0.4 Mg Tab.subl, 1 TAB SL NITRO PRN for CHEST PAIN 02/16/19 Metoprolol Tartrate (Metoprolol Tartrate) 25 Mg Tablet, 25 MG PO BID 02/16/19 Aspirin (Aspir 81) 81 Mg Tablet.dr, 81 MG PO DAILY 02/16/19 Atorvastatin Calcium (Atorvastatin Calcium) 80 Mg Tablet, 80 MG PO QHS 02/16/19 Review of Systems Constitutional: Denies: Chills, Fever, Night Sweats Eyes: Denies: Pain, Vision change HEENT: Denies: Head Aches, Dysphagia, Sore Throat Skin: Denies: Rash, Lesions, Bruising Pulmonary: Denies: Dyspnea, Cough Cardiovascular: Denies: Chest Pain, Palpitations, Edema Gastrointestinal: Denies: Nausea, Vomiting, Abdominal Pain, Diarrhea Genitourinary: Denies: Dysuria, Frequency, Incontinence Hematologic: Denies: Bruising, Petecchia, Enlarged Lymph Nodes Musculoskeletal: Denies: Neck pain, Back pain Neurological: Denies: Weakness, Numbness, Incoordination Psych: Reports: Mood Normal; Denies: Memory Issues, Thoughts of Self Harm Vital Signs Wt 147 lb T 98.4 RR 18 BP 99/72 O2 99% Pain 0 Fatigue 0 General Exam: Positive: Alert, Cooperative, No Acute Distress Eye Exam: Positive: PERRLA, EOMI ENT EXAM: Positive: Mucous membr. moist/pink, Pharynx Normal Neck Exam: Negative: Thyromegaly, Lymphadenopathy Chest Exam: Positive: Normal air movement; Negative: Rales, Rhonchi, Wheezing Heart Exam: Positive: Rate Normal, Regular Rhythm Breast Exam: Positive: Other Breast Findings (Well healing mastectomy incisions, CDI. No skin lesions. ) Abdomen Exam: Positive: Soft; Negative: Tenderness, Mass Extremity Exam: Negative: Edema (RUE without pitting edema), Tenderness Skin Exam: Positive: Nl turgor and temperature; Negative: Rash Neuro Exam: Positive: Normal Gait, Normal Speech, Cranial Nerves 3-12 NL Psych Exam: Positive: Mental status NL, Mood NL, Memory Intact Diagnostic and Laboratory Diagnostic Review Radiologic images, relevant labs and pathology reports were personally reviewed and discussed with Ms. Troy. Assessment and Plan Impression Ms. Troy is a 45 year old female with prior CAD/[place] and [id number] ER/CT+ HER2- Grade 3 KONSTANTIN+ stage IIB right breast IDC. She underwent BL mastectomy and right ALND on 06/05/[address] Cooley. She has opted against reconstruction and chemotherapy is pending. She is seen today to discuss PMRT. Stage [id number] ER/CT+ HER2- Grade 3 KONSTANTIN+ stage IIB right breast IDC Performance Status ECOG 0 Plan We had an extensive discussion with Ms. Troy regarding the diagnosis at hand and available therapeutic options. She has significant cardiac comorbidity. Thankfully, her tumor was on the right and so the heart will be spared any appreciable radiation dose. Overall, I recommend PMRT 50.4 Gy in 28 fractions, upon completion of adjuvant chemotherapy, including comprehensive regional alonzo RT (including the IMNs) given the burden of axillary disease and KONSTANTIN+ on final pathology, which was quite unexpected given the negative axilla clinically and radiographically. As she has not sought reconstruction, I will attempt to treat her with a 3D conformal mono-isocentric technique, however, if we are unable to meet acceptable normal tissue constraints, or unable to adequately cover the IMN chain, I will pursue VMAT-based treatment. We reviewed the possible side effects of RT, including fatigue, skin reaction, fibrosis, worsening lymphedema, and implant failure if she were to elect to pursue reconstruction later on. We discussed the logistics of receiving radiation therapy in detail including the need for a 1-time planning session. After discussing the risks, benefits and alternatives to radiation therapy, Ms. Troy was amenable to pursuing radiotherapy. All questions were answered to the patient's satisfaction. We will follow her course through chemotherapy and reach out at the appropriate time to schedule simulation. We instructed the patient that if there were any questions,concerns or changes in clinical status in the interim to contact us. Recommendations PMRT 50.4 Gy in 28 fractions including comprehensive regional alonzo irradiation (axilla, supraclavicular, IMN) Simulation pending completion of adjuvant systemic therapy MARGY ROMERO MD Jun 19, 2020 11:42
== END ==
LOC: M ONCR 09:04
PROVIDERS: ATTEND General Practice
DX: C50.411 Malignant neoplasm of upper-outer quadrant of right female breast (principal)

== ENCOUNTER → 2020-06-27 | Outpatient (REF) | payer OTHER ==
[2020-06-27 09:59] LABS: FREE T4 0.85 NG/DL (0.76-1.46); THYROID STIMULATING HORMONE 0.572 uIU/ML (0.358-3.740)
[2020-06-27 10:10] LABS: THYROID PEROXIDASE ANTIBODY 336.7 U/ML (<60.0); TOTAL 25(OH) VITAMIN D 53.3 NG/ML (30.0-100.0)
== END ==
LOC: M LAB REF 08:45
PROVIDERS: ATTEND Family Medicine
DX: E78.5 Hyperlipidemia, unspecified (principal); E55.9 Vitamin D deficiency, unspecified

== ENCOUNTER → 2020-07-01 | Outpatient (CLI) | payer OTHER ==
--- NOTE | 2020-07-02 10:11 | ECHO ---
DATE OF PROCEDURE: July 01, 2020 Age: 45 Gender: Female Height: 160 cm Weight: 67 kg REFERRING PHYSICIAN: Dr. Veda Keith INDICATION: Chemotherapy. MEASUREMENTS: Dimensions: IVS 0.9 LV 4.3 LVPW 1.1 LA 2.9 Aorta 2.6 IVC 1.1 Mitral E wave velocity 82, A wave 63 E prime septal 9.2 E prime lateral 10.5 FINDINGS: The study is of good technical quality. The patient is in sinus rhythm. Left ventricle is normal size and has normal systolic function, estimated left ventricular ejection fraction (LVEF) approximately 65%. Right ventricle is also normal size and systolic function. Both atria are normal. Aortic mitral and tricuspid valves appear normal. Pulmonic valve was not well seen. No pericardial effusion is present. Inferior vena cava is of normal size and appropriately collapses with inspiration indicative of normal central venous pressure (CVP). Aortic root, aortic arch and visualized segment of abdominal aorta all appear normal. Doppler interrogation reveals no aortic stenosis and trace aortic insufficiency. There is also trace mitral and tricuspid insufficiency. Calculated pulmonary artery pressure is in the mid 20s corresponding to normal values. Mitral inflow pattern and tissue Doppler imaging of mitral annulus revealed normal diastolic dysfunction. CONCLUSIONS: 1. Study is of good technical quality, the patient is in sinus rhythm. 2. Normal LV size, systolic and diastolic function. 3. No significant valvular disease. 4. Normal central venous pressure and likely normal pulmonary artery pressure. MTDD
== END ==
LOC: M CARPUL 10:23
PROVIDERS: ATTEND Internal Medicine Medical Oncology
DX: C50.911 Malignant neoplasm of unspecified site of right female breast (principal)

== ENCOUNTER → 2020-07-08 | Outpatient (CLI) | payer OTHER ==
--- NOTE | 2020-07-08 18:18 | REP ---
INDICATION: STAGING UPPER OUTER QUAD RT BREAST CA. Patient status post bilateral mastectomy. Node positivity right axilla. COMPARISON: Comparison MRI study of the breasts April 07, 2020.. TECHNIQUE: Sixty minutes following the intravenous injection of a 8.29 mCi dose of F-18 FDG, three-dimensional PET scintigraphy is acquired from the skull base to the proximal thighs. Triplanar noncontrast CT scanning is acquired through the same anatomic range for attenuation correction, and image registration with scan parameters optimized to minimize radiation exposure to the patient. PET scintigraphy and CT datasets were fused and displayed on a workstation with multiplanar and projection display capability. FINDINGS: No suspicious hypermetabolic uptake is seen in the head and neck soft tissues. There is no evidence of axillary node hypermetabolic uptake on either side. Postoperative clips are noted in the right axilla. There is minimal bilateral postoperative chest wall uptake in a linear fashion. No masslike uptake is seen. Maximum standard uptake in this postoperative pattern is 3.1. No pulmonary nodule or infiltrative density is seen in the lung gillis. No abnormal hypermetabolic uptake is seen within the pulmonary parenchyma. No internal mammary or hilar or mediastinal alonzo uptake is seen. There is a photopenic area corresponding to the cyst in the superior aspect of the right lobe of the liver. No abnormal hypermetabolic uptake is seen within the liver or spleen. No retroperitoneal or upper abdominal alonzo hypermetabolic focus is seen. No abnormal pelvic hypermetabolic uptake is seen. No abnormal skeletal uptake is appreciated. IMPRESSION: Expected post mastectomy changes. No evidence of hypermetabolic metastatic uptake. <Electronically signed by Kennedy Hebert > 07/08/20 [id number]
== END ==
LOC: M PLARAD 13:30
PROVIDERS: ATTEND Surgery
DX: C50.411 Malignant neoplasm of upper-outer quadrant of right female breast (principal)
CPT/HCPCS: 78815; A9552

== ENCOUNTER → 2020-07-10 | Outpatient (CLI) | payer OTHER ==
[~2020-07-10] MED LIST changes: +LIDOCAINE 1% MDV 20ML VIAL As Ordered ONE; +MIDAZOLAM INJ 2MG/2ML VIAL (J2250 PER 1MG) As Ordered ONE; +OLAN5ZYD PO; +ONDA8TAB10 PO; +ONDANSETRON 4MG/2ML VIAL As Ordered ONE; +PROC10TA4 PO; +ceFAZolin 2 GM/D5W 50 ML IV BAG (J0690 PER 500MG) As Ordered ONE; +diphenhydrAMINE 50MG/ML VIAL (J1200) As Ordered ONE; +fentaNYL 100 MCG/2 ML INJECTION (J3010) As Ordered ONE
--- NOTE | 2020-07-10 12:28 | POST-OPPD ---
Postoperative Procedure Note Date Of Procedure: Jul 10, 2020 Time Of Procedure: 12:27 IR ultrasound and fluoroscopy guided port placement IR Ultrasound of the neck. IR Moderate sedation. Clinical indication: Right-sided breast cancer. Needs chemotherapy. Physician: Dr. Atkins. Procedure: The patient was advised of the benefits, risks, and alternatives of the procedure and informed consent was obtained. A time-out was performed with verification of the patient's name, MRN, site of procedure and type of procedure to be performed. The patient was positioned in the supine position on the angiographic table. The site was prepped and draped in the usual sterile fashion. Moderate sedation was performed by the physician including the presence of an independent trained RN who assisted and monitored the patient's level of consciousness and physiologic status. Following the administration of fentanyl and Versed , the physician spent 45 minutes of continuous face to face time with the patient. Ultrasound of the neck reveals a patent and compressible left internal jugular vein. A tool and die machinist radiograph reveals no gross abnormality. The neck and anterior chest wall were anesthetized with lidocaine. The left internal jugular vein was accessed using a microintroducer needle under ultrasound guidance, via a lateral approach. An 018 wire was advanced into the superior vena cava, the needle was removed and a microsheath was placed. An Amplatz wire was then passed into the inferior vena cava. An incision at the internal jugular vein access site and anterior chest wall were made using a scalpel. An incision was made at the anterior chest wall. A small pocket was created using a combination of blunt and sharp dissection. A tunneling device was then used to pass the catheter from the pocket to the neck puncture site. An 8- Italian Angio Jenn Rykert Smart power port was then positioned in the pocket. The catheter was then measured and cut. The introducer sheath was exchanged for a peel-away sheath. The catheter was passed through the peel-away sheath into the internal jugular vein and the peel-away sheath was removed. The port tip was positioned at the cavoatrial junction. The port was then accessed with a Angulo needle. The port flushes and aspirates well. The puncture site in the neck was closed. The chest wall incision was then closed with 2-0 Vicryl and 4-0 Monocryl. Glue and Steri- Strips were applied. A sterile dressing was then applied. The patient tolerated the procedure well and was returned to the PRU in stable condition. Estimated blood loss: <5 ml. Complications: None. Conclusion: 1. Successful placement of an 8-Italian Angio dynamics Smart power port via the Left internal jugular vein. The port is ready for immediate use. 2. Patient to follow up in IR clinic in 2 weeks. Thank you for this referral. NIKOLAY ATKINS MD Jul 10, 2020 12:28
[2020-07-10 12:45] VITALS: BP 110/69
== END ==
LOC: M IRPRO 08:41
PROVIDERS: ATTEND Internal Medicine Medical Oncology
DX: C50.911 Malignant neoplasm of unspecified site of right female breast (principal); Z79.899 Other long term (current) drug therapy
CPT/HCPCS: 36561; 99152; 99153; C1769; C1788; C1894; J0690; J1642; J1644; J2250; J2405; J3010

== ENCOUNTER → 2020-08-05 | Outpatient (POV) | payer OTHER ==
[~2020-08-05] MED LIST changes: +CLAR10CA3 PO; +ECOT81TA5 PO; +LIDO2.5C15 TOP; -LIDOCAINE 1% MDV 20ML VIAL As Ordered ONE; -MIDAZOLAM INJ 2MG/2ML VIAL (J2250 PER 1MG) As Ordered ONE; -MONT10TA4 PO; +MONT5TAB2 PO; -ONDANSETRON 4MG/2ML VIAL As Ordered ONE; -ceFAZolin 2 GM/D5W 50 ML IV BAG (J0690 PER 500MG) As Ordered ONE; -diphenhydrAMINE 50MG/ML VIAL (J1200) As Ordered ONE; -fentaNYL 100 MCG/2 ML INJECTION (J3010) As Ordered ONE
--- NOTE | 2020-08-06 13:37 | IRPN ---
[facility] IR Progress Note IR Progress Note DATE: Aug 05, 2020 Patient agreed to this telephone follow-up. Duration of call 5 minutes. FOLLOW-UP: Status post port placement. Patient states she is doing well. Port has been accessed and used 2 times without any issues. Patient denies fevers, chills, pain at site or drainage. ON EXAMINATION: Patient sent images of the port site. Port site appears to be healing well without redness, swelling, discharge. IMPRESSION: Doing well status post port placement. No further follow-up scheduled unless initiated by patient and/or referring provider. Thank you for this referral Allergies Coded Allergies: SEASONAL ALLERGIES (Verified Allergy, Unknown, 05/28/20) NIKOLAY CHARLES MD Aug 06, 2020 13:37
== END ==
LOC: M TMIRPOV 08:47
PROVIDERS: ATTEND Radiology Diagnostic Radiology
DX: Z45.2 Encounter for adjustment and management of vascular access device (principal)

== ENCOUNTER → 2020-09-04 | Outpatient (CLI) | payer OTHER ==
[~2020-09-04] MED LIST changes: +DECA4TAB PO; +HYDR-643 PO; +MAGICMW SSP
--- NOTE | 2020-09-08 08:10 | ECHO ---
DATE OF PROCEDURE: 09/04/2020 Age: 45 Gender: Female REFERRING PHYSICIAN: Veda Keith M.D. INDICATION: Chemotherapy drug monitoring. 2D MEASUREMENTS: IVS 0.89 cm LV 3.9 cm LVPW 0.91 cm LA 2.9 cm Aorta 2.8 cm DOPPLER MEASUREMENT Peak velocity across the aortic valve 0.95 m/s Peak velocity across the LVOT 0.64 m/s Mitral E 0.81 Mitral A 0.91 with a ratio of 0.9 2D COMMENTS: 1. Normal left ventricle size, wall thickness, and overall left ventricular systolic function subjectively appeared to be normal, estimated at 55% to 60%. 2. Normal left atrium. Normal right atrium and right ventricle. 3. The atrial septum appeared to be normal without evidence of defect or shunt. 4. Normal aortic root. 5. Trace pericardial effusion noted. No evidence of cardiac tamponade. 6. Mildly calcified aortic valve with normal leaflet excursion. Mildly calcified mitral annulus with normal anterior mitral valve leaflet motion. Normal tricuspid valve. The pulmonic valve and proximal pulmonary artery branches were not well visualized. 7. The inferior vena cava was not well visualized. Doppler with only trace mitral regurgitation detected. Abnormal relaxation pattern was noted across the (cut out) diastolic dysfunction. IMPRESSION: 1. Normal global left ventricular systolic function. There are some features of grade 1 left ventricular diastolic dysfunction manifested by abnormal relaxation. 2. Aortic valve sclerosis without stenosis or aortic regurgitation. 3. Mitral annular calcification with trace mitral regurgitation. 4. Trace pericardial effusion. 5. Not mentioned above, global longitudinal strain/GLS was calculated at -14%. MTDD
== END ==
LOC: M CARPUL 10:28
PROVIDERS: ATTEND Internal Medicine Medical Oncology
DX: Z51.81 Encounter for therapeutic drug level monitoring (principal); C50.911 Malignant neoplasm of unspecified site of right female breast; Z92.21 Personal history of antineoplastic chemotherapy

== ENCOUNTER → 2020-12-01 | Outpatient (CLI) | payer OTHER ==
[~2020-12-01] MED LIST changes: +BACT800T5 PO; +CEPH500C PO; -LISI-542 PO; +LISI-898 PO; +MONT10TA10 PO; -MONT5TAB2 PO; +PERC5TAB12 PO; +TAMO20TA8 PO
--- NOTE | 2020-12-02 20:07 | REP ---
INDICATION: DIAGNOSING MALIGNANT NEOPLASM OF BREAST. COMPARISON: Whole-body PET-CT scan dated 07/08/2020. TECHNIQUE: Whole-body PET-CT scanning is performed from the skull base to the upper thighs with 15.5 mCi of F 18 FDG. FINDINGS: On the CT accompanying the PET scan there are bilateral mastectomies and there are surgical clips in the axilla bilaterally. This is unchanged from the prior study. Neck and supraclavicular areas: There are no hypermetabolic foci. Chest: There are no hypermetabolic foci. Specifically there are no axillary foci. No chest wall foci. Abdomen, pelvis and upper thighs: There are no hypermetabolic foci. Specifically no adrenal or hepatic foci. There are hepatic cysts demonstrating photopenia, similar to the prior study. IMPRESSION: There are no hypermetabolic foci. This is unchanged from the prior study. <Electronically signed by Tanner Tarango > 12/02/202002
== END ==
LOC: M PLARAD 15:25
PROVIDERS: ATTEND Surgery
DX: C50.411 Malignant neoplasm of upper-outer quadrant of right female breast (principal)
CPT/HCPCS: 78815; A9552

== ENCOUNTER 2020-12-23 09:15 | Outpatient (RCR) | payer OTHER | END 2020-12-26 | LOC: M PT 09:15 | PROVIDERS: ATTEND Surgery | DX: I89.0 Lymphedema, not elsewhere classified (principal) ==

== ENCOUNTER → 2020-12-26 | Outpatient (RCR) | payer OTHER | LOC: M ONCR 12-09 11:00 | PROVIDERS: ATTEND General Practice | DX: C50.411 Malignant neoplasm of upper-outer quadrant of right female breast (principal) ==

== ENCOUNTER 2021-01-01 09:12 | Outpatient (RCR) | payer OTHER ==
[~2021-01-01 09:12] MED LIST changes: +LIDO1CRE42 TOP; -LIDO2.5C15 TOP
[2021-01-05] MEDS ORDERED: LIDO1CRE2 TOP (09:09)
[2021-01-06] MEDS ORDERED: LIDO1CRE2 TOP (08:37)
[2021-01-23] MEDS ORDERED: MAGICMW SSP (09:13)
[2021-01-23] MEDS ORDERED: LIDO2SOL17 PO (10:35)
== END 2021-01-26 ==
LOC: M PT 09:12
PROVIDERS: ATTEND Surgery
DX: I89.0 Lymphedema, not elsewhere classified (principal)

== ENCOUNTER → 2021-01-07 | Outpatient (REF) | payer OTHER ==
[~2021-01-07] MED LIST changes: +LIDO1CRE2 TOP
== END ==
LOC: M SFHCWAGY 12:57
PROVIDERS: ATTEND Obstetrics & Gynecology
DX: Z12.4 Encounter for screening for malignant neoplasm of cervix (principal)

== ENCOUNTER → 2021-01-21 | Outpatient (REF) | payer OTHER ==
[~2021-01-21] MED LIST changes: +LIDO2SOL17 PO
[2021-01-21 12:19] LABS: CHOLESTEROL RISK RATIO 1.87 (<5); FREE T4 0.8 NG/DL (0.76-1.46); THYROID STIMULATING HORMONE 0.735 uIU/ML (0.358-3.740); TOTAL 25(OH) VITAMIN D 60.8 NG/ML (30.0-100.0)
== END ==
LOC: M LAB REF 10:00
PROVIDERS: ATTEND Family Medicine
DX: E78.5 Hyperlipidemia, unspecified (principal); E55.9 Vitamin D deficiency, unspecified; E06.3 Autoimmune thyroiditis

== ENCOUNTER 2021-01-23 08:36 | Outpatient (RCR) | payer OTHER ==
[~2021-01-23 08:36] MED LIST changes: -LIDO2SOL17 PO
[2021-01-23] MEDS ORDERED: MAGICMW SSP (09:13)
[2021-01-23] MEDS ORDERED: LIDO2SOL17 PO (10:35)
== END 2021-01-26 ==
LOC: M ONCR 08:36
PROVIDERS: ATTEND General Practice
DX: C50.411 Malignant neoplasm of upper-outer quadrant of right female breast (principal)

== ENCOUNTER 2021-01-29 08:37 | Outpatient (RCR) | payer OTHER ==
[~2021-01-29 08:37] MED LIST changes: +LIDO2SOL17 PO
== END 2021-02-25 ==
LOC: M ONCR 08:37
PROVIDERS: ATTEND General Practice
DX: C50.411 Malignant neoplasm of upper-outer quadrant of right female breast (principal)

== ENCOUNTER → 2021-01-30 | Outpatient (CLI) | payer OTHER ==
--- NOTE | 2021-01-30 09:55 | REP ---
INDICATION: MONOALLELIC MUTATION OF MSH6 GENE COMPARISON: None. TECHNIQUE: Transabdominal pelvic ultrasound followed by transvaginal examination for better evaluation of the endometrium and adnexa with color Doppler evaluation of the ovaries. FINDINGS: Bladder is unremarkable and measures 9.9 x 6.4 x 9.2 cm. Normal anteverted uterus measures 9.5 x 3.1 x 4.1 cm. The endometrial complex measures 3.2 mm thickness. No discrete uterine or endometrial abnormalities are appreciated. Ovaries were not identifiable on either transabdominal or transvaginal imaging. No pelvic fluid or obvious adnexal mass lesion appreciated. IMPRESSION: Normal appearance to the uterus. Ovaries not visualized. No pelvic fluid. <Electronically signed by Zhang Silva > 01/30/21 [id number]
== END ==
LOC: M WHC 08:51
PROVIDERS: ATTEND Obstetrics & Gynecology
DX: Z15.09 Genetic susceptibility to other malignant neoplasm (principal)

== ENCOUNTER → 2021-02-19 | Outpatient (CLI) | payer OTHER ==
[~2021-02-19] MED LIST changes: +LIDOCAINE 1% MDV 20ML VIAL As Ordered ONE; +MIDAZOLAM INJ 2MG/2ML VIAL (J2250 PER 1MG) As Ordered ONE; +NS 1,000 ML IV SCH; +ceFAZolin 2 GM/D5W 50 ML IV BAG (J0690 PER 500MG) As Ordered ONE; +ceFAZolin SOD 2 GM in IV 1 EA IV ONE; +diphenhydrAMINE 50MG/ML VIAL (J1200) As Ordered ONE; +fentaNYL 100 MCG/2 ML INJECTION (J3010) As Ordered ONE
--- NOTE | 2021-02-19 12:24 | IRHP ---
[facility] IR Pre-Procedure H & P General Date of Service: Feb 19, 2021 Procedure: Same Day Surgery Interval History and Physical I have seen the patient and reviewed last H & P performed within 30 days. There is no significant interval change. History of Present Illness Chief Complaint The patient is a 45-year-old female admitted with a reason for visit of Rt Breast Ca. PRE-PROCEDURE DIAGNOSIS: Breast cancer. Treatment complete. Presents for port removal HEART: Normal rate. LUNGS: Normal breathing at rest. ASA Classification ASA Classification: II-Mild systemic disease Mallampati Score: II NPO: Yes Problems with prior sedation: No Obstructive Sleep Apnea: No Plan moderate sedation Allergies Coded Allergies: SEASONAL ALLERGIES (Verified Allergy, Unknown, 05/28/20) Home Medications Scheduled Ascorbic Acid (Vitamin C), 500 MG PO DAILY, (Reported) Aspirin (Ecotrin), 81 MG PO DAILY, (Reported) Atorvastatin Calcium (Atorvastatin Calcium), 80 MG PO QHS, (Reported) Calcium Carbonate/Vitamin D3 (Calcium 600 + Vit D 400 Softgl), 1 CAP PO Q2D, (Reported) Cannabidiol (Cbd Oil), 1 ML PO 3-4XDP, (Reported) Cetirizine HCl (ZyrTEC), 10 MG PO DAILY, (Reported) Cholecalciferol (Vitamin D3) (Vitamin D3), 5,000 UNITS PO DAILY, (Reported) Cyanocobalamin (Vitamin B-12) (Vitamin B-12), 1,000 MCG PO DAILY, (Reported) Ferrous Sulfate (Ferrous Sulfate), 325 MG PO DAILY Hydroxyzine HCl (Hydroxyzine HCl), 1 TAB PO BID Lactobacillus Combo No.10 (Probiotic), 1 CAP PO DAILY, (Reported) Lidocaine (Lidocaine), 1 APLCT TOP BID Loratadine (Claritin), 10 MG PO DAILY Magnesium Citrate (Magnesium Citrate), 125 MG PO BID, (Reported) Metoprolol Tartrate (Metoprolol Tartrate), 25 MG PO BID, (Reported) Mv-Min/Iron/Folic/Calcium/Vitk (Women's Multivitamin Tablet), 1 TAB PO DAILY, (Reported) Olanzapine (Olanzapine Odt), 5 MG PO DAILY [place]-3/Dha/Epa/Fish Oil ([place]-3 Fish Oil 1,000 mg Sfgl), 1,000 MG PO DAILY, (Reported) Tamoxifen Citrate (Tamoxifen Citrate), 20 MG PO DAILY Ubidecarenone (Co Q-10), 100 MG PO BID, (Reported) Scheduled PRN Azelastine HCl (Azelastine HCl), 2 SPRAY NA BID PRN for ALLERGIES, (Reported) Calcium Carbonate (Tums), 500 MG PO ACHS PRN for HEARTBURN, (Reported) Fluticasone Propionate (Flonase Allergy Relief), 1 SPRAY NA BID PRN for ALLERGIES, (Reported) Ketotifen Fumarate (Alaway), 1 DROP OU BID PRN for ALLERGIES, (Reported) Lidocaine HCl (Lidocaine HCl Viscous), 10 ML PO QID PRN for esophagitis Magic Mouthwash (First-Mouthwash Blm), 10 ML SSP QID PRN for MUCOSITIS Montelukast Sodium (Montelukast Sodium), 10 MG PO DAILY PRN for ALLERGIES, (Reported) Nitroglycerin (Nitroglycerin), 1 TAB SL NITRO PRN for CHEST PAIN, (Reported) Ondansetron HCl (Ondansetron HCl), 8 MG PO Q12H PRN for NAUSEA OR VOMITING Oxycodone HCl/Acetaminophen (Percocet 5-325 mg Tablet), 1 TAB PO BIDP PRN for pain Prochlorperazine Maleate (Prochlorperazine Maleate), 10 MG PO Q6H PRN for NAUSEA OR VOMITING Discontinued Medications Dexamethasone (Decadron), 8 MG PO BID Discontinued Reason: Pt states not taking VS, I&O, 24H, Fishbone Vital Signs/I&O Vital Signs Date Time Temp Pulse Resp B/P (MAP) Pulse Ox O2 Delivery O2 Flow Rate FiO2 02/19/21 11:55 97.2 96 20 97 Room Air NIKOLAY CHARLES MD Feb 19, 2021 12:23
[2021-02-19 14:44] VITALS: BP 131/85
--- NOTE | 2021-02-23 12:49 | IRPON ---
IR Postoperative Note Date Of Procedure: Feb 19, 2021 Time Of Procedure: 16:00 IR Postoperative Note IR Port Removal / Explant. IR Moderate sedation. Clinical Information:Right-sided breast cancer. Treatment complete. Patient would like port removed. Physician: Dr. Atkins Procedure: The patient was advised of the benefits, risks, and alternatives of the procedure and informed consent was obtained. A time out was performed with verification of the patient's name, MRN, site of procedure, and type of procedure to be performed. The patient was positioned in the supine position on the angiographic table. The site was prepped and draped in the usual sterile fashion. Moderate sedation was performed by the physician including the presence of an independent trained RN who assisted in monitoring the patient's level of consciousness and physiological status. Following the administration of fentanyl and Versed the physician spent 30 minutes of continuous wbzl-pb-blob time with the patient. A porter used car lot radiograph reveals a left sided port. The soft tissues overlying the port were anesthetized with lidocaine. An incision was made over the port using a 15 blade scalpel in the location of the prior incision. The catheter was then freed with blunt dissection and extracted. Pressure was applied to obtain hemostasis. The port was then freed with blunt dissection and subsequently removed. There were no signs of infect ion. After hemostasis was achieved, the incision was closed with interrupted deep 3-0 Vicryl sutures and subcuticular Monocryl suture followed by glue and steri-strips. The site was covered with a sterile dressing. The patient tolerated the procedure well and was returned to the PRU in stable condition. EBL:Less than 5 mL Complications:None. Conclusions: 1. Successful explant of a left sided port. 2. No signs of infection. Thank you for this referral NIKOLAY ATKINS MD Feb 23, 2021 12:49
== END ==
LOC: M IRPRO 11:45
PROVIDERS: ATTEND Radiology Diagnostic Radiology
DX: Z45.2 Encounter for adjustment and management of vascular access device (principal); C50.911 Malignant neoplasm of unspecified site of right female breast; J30.89 Other allergic rhinitis; Z79.82 Long term (current) use of aspirin; Z79.899 Other long term (current) drug therapy
CPT/HCPCS: 36590; 99152; 99153; J0690; J1200; J1644; J2250; J3010

== ENCOUNTER → 2021-03-10 | Outpatient (POV) | payer OTHER ==
[~2021-03-10] VITALS: Ht 160 cm; Wt 66.8 kg
[~2021-03-10] MED LIST changes: -LIDOCAINE 1% MDV 20ML VIAL As Ordered ONE; -MIDAZOLAM INJ 2MG/2ML VIAL (J2250 PER 1MG) As Ordered ONE; -NS 1,000 ML IV SCH; -ceFAZolin 2 GM/D5W 50 ML IV BAG (J0690 PER 500MG) As Ordered ONE; -ceFAZolin SOD 2 GM in IV 1 EA IV ONE; -diphenhydrAMINE 50MG/ML VIAL (J1200) As Ordered ONE; -fentaNYL 100 MCG/2 ML INJECTION (J3010) As Ordered ONE
[2021-03-10 08:40] VITALS: BP 129/90
--- NOTE | 2021-03-11 14:32 | IRPN ---
[facility] IR Progress Note IR Progress Note DATE: Mar 10, 2021 FOLLOW-UP: Status post port removal. Patient states she is doing well. No pain, no fevers or chills. ON EXAMINATION: Port removal site appears to be healing well. Steri-Strips are still in place. No redness, or discharge. IMPRESSION: Doing well status post port removal. No further follow-up scheduled unless initiated by patient and/or referring provider. Thank you for this referral Allergies Coded Allergies: SEASONAL ALLERGIES (Verified Allergy, Unknown, 05/28/20) VS,Fishbone, I+O VS, Fishbone, I+O Vital Signs Date Time Temp Pulse Resp B/P (MAP) Pulse Ox O2 Delivery O2 Flow Rate FiO2 03/10/21 08:40 98.5 79 18 129/90 (103) 100 Room Air NIKOLAY CHARLES MD Mar 11, 2021 14:32
== END ==
LOC: M IRPOV 08:34
PROVIDERS: ATTEND Radiology Diagnostic Radiology
DX: Z48.812 Encounter for surgical aftercare following surgery on the circulatory system (principal)

== ENCOUNTER → 2021-04-02 | Outpatient (CLI) | payer OTHER | LOC: M WHC 09:45 | PROVIDERS: ATTEND Internal Medicine Medical Oncology | DX: C50.919 Malignant neoplasm of unspecified site of unspecified female breast (principal) ==

== ENCOUNTER → 2021-04-28 | Outpatient (REF) | payer OTHER ==
[~2021-04-28] MED LIST changes: +LETR2.5T2 PO
[2021-04-28 13:37] LABS: ESTRADIOL < 19.0 PG/ML; FOLLICLE STIMULATING HORMONE 54.5 mIU/mL
== END ==
LOC: M LABDRWAD 12:34
PROVIDERS: ATTEND Internal Medicine Medical Oncology
DX: J30.2 Other seasonal allergic rhinitis (principal)

== ENCOUNTER → 2021-05-20 | Outpatient (CLI) | payer OTHER ==
[~2021-05-20] MED LIST changes: +FISH1000 PO
== END ==
LOC: M LABSMTC 10:13
PROVIDERS: ATTEND Anesthesiology
DX: Z01.812 Encounter for preprocedural laboratory examination (principal); Z20.822 Contact with and (suspected) exposure to COVID-19

== ENCOUNTER 2021-05-25 06:12 | Day surgery (SDC) | payer OTHER ==
[~2021-05-25] VITALS: Ht 160 cm; Wt 68.5 kg
[~2021-05-25 06:12] MED LIST changes: +LR 1,000 ML IV ONE; +ceFAZolin SOD 1 GM in D5W MINI-BAG PLUS 50 ML IV ONE
[2021-05-25] MEDS ORDERED: ceFAZolin SOD 1 GM in D5W MINI-BAG PLUS 50 ML IV ONE (06:15)
[2021-05-25] MEDS ORDERED: zinc PO (06:41)
[2021-05-25 07:02] LABS: HEMATOCRIT 38.2 % (36.0-47.0); MEAN CORPUSCULAR HEMOGLOBIN 30.2 pg (27.0-33.0); MEAN CORPUSCULAR VOLUME 88.6 fl (80.0-96.0); RED BLOOD COUNT 4.31 10^6/uL (4.00-5.40)
[2021-05-25] MEDS ORDERED: METHYLENE BLUE 0.5% (5MG/ML) 10 ML AMP (PROVAYBLUE) As Ordered ONE (07:11)
[2021-05-25] MEDS ORDERED: BUPIVACAINE HCL 0.25% 30ML VIAL As Ordered ONE (07:11)
[2021-05-25] MEDS ORDERED: ONDANSETRON 4MG/2ML VIAL As Ordered ONE ×3 (07:14→13:36)
[2021-05-25] MEDS ORDERED: propofoL 200 MG/20 ML VIAL As Ordered ONE (07:14)
[2021-05-25] MEDS ORDERED: ACETAMINOPHEN 1000MG 100ML IV BTL (OFIRMEV) (J0131 PER 10MG) As Ordered ONE (07:14)
[2021-05-25] MEDS ORDERED: dexameTHASONE 4 MG/ML 1ML VIAL (J1100 PER 1MG) As Ordered ONE (07:14)
[2021-05-25] MEDS ORDERED: ROCURONIUM BROMIDE 50 MG/5 ML VIAL As Ordered ONE ×2 (07:14→08:21)
[2021-05-25] MEDS ORDERED: METOCLOPRAMIDE INJ 10MG/2ML VIAL (J2765 PER 1) As Ordered ONE (07:14)
[2021-05-25] MEDS ORDERED: LIDOCAINE 2% 100MG/5ML SDV (FOR ANES.) As Ordered ONE (07:14)
[2021-05-25] MEDS ORDERED: fentaNYL 100 MCG/2 ML INJECTION (J3010) As Ordered ONE (07:15)
[2021-05-25] MEDS ORDERED: MIDAZOLAM INJ 2MG/2ML VIAL (J2250 PER 1MG) As Ordered ONE (07:15)
[2021-05-25 07:18] LABS: HCG, SERUM QUALITATIVE NEGATIVE (NEGATIVE)
[2021-05-25] MEDS ORDERED: SCOPOLAMINE 1MG TRANSDERMAL PATCH TOP ONE (07:25)
[2021-05-25 07:41] LABS: PLATELET COUNT, AUTOMATED 124 10^3/uL (150-450)
[2021-05-25] MEDS ORDERED: HYDROmorphone HCL 2 MG/ML 1ML VIAL As Ordered ONE (08:26)
[2021-05-25] MEDS ORDERED: DOCUSATE SODIUM 100MG CAPSULE PO SCH (09:00)
[2021-05-25] MEDS ORDERED: SUGAMMADEX SODIUM 500 MG/5 ML VIAL (BRIDION) As Ordered ONE (09:35)
[2021-05-25] MEDS ORDERED: KETOROLAC 60MG 2ML VIAL As Ordered ONE (09:35)
[2021-05-25] MEDS ORDERED: AZELASTINE 137MCG NASAL SPY 30 ML (ASTELIN) PRN (10:35)
[2021-05-25] MEDS ORDERED: LR 1,000 ML IV SCH ×2 (10:35→11:00)
[2021-05-25] MEDS ORDERED: PROMETHAZINE INJ 25 MG/ML VIAL (J2550) IV PRN (10:35)
[2021-05-25] MEDS ORDERED: PERCOCET 5MG/325MG TAB PO PRN ×2 (10:35)
[2021-05-25] MEDS ORDERED: FLUTICASONE PROP 0.05% NASAL SPRAY 16 GM (FLONASE) PRN (10:35)
--- NOTE | 2021-05-25 10:46 | ROOPDOC ---
[facility] Report Of Operation Report of Operation DATE OF PROCEDURE: 05/25/2021 PREPROCEDURE DIAGNOSES: History of breast cancer, requesting risk reducing hysterectomy with bilateral salpingo-oophorectomy POSTPROCEDURE DIAGNOSES: Same. PROCEDURE: Robotic-assisted total laparoscopic hysterectomy, bilateral salpingo- oophorectomy, cystoscopy SURGEON: Joel HinesOG PLANT ELECTRICIAN: None ANESTHESIA: General endotracheal. ESTIMATED BLOOD LOSS: Approximately 100 mL. FLUIDS REPLACED: 1300 mL LR URINE OUTPUT: 250 mL COMPLICATIONS: None. FINDINGS: Normal-appearing ovaries bilaterally. Uterus was approximately 9 centimeters in greatest dimension. Cystoscopy: Bilateral ureteral orifice efflux, no bladder injury/suture material. PREOPERATIVE ANTIBIOTIC PROPHYLAXIS: Ancef 2 g IV 1. SPECIMEN(S): Uterus w/ cervix, bilateral fallopian tubes and ovaries DESCRIPTION OF PROCEDURE: The patient was counseled, consented on the respective benefits, indications, alternatives of procedure. Informed consent was obtained. She was taken to the operating room with an IV running. She was placed on the operating table in dorsal supine position. Gen. anesthesia was administered and the airway was secured without any difficulty. She was placed in the low lithotomy position. . She was prepared and draped in the normal sterile fashion. A time out was performed per protocol. A Jeter catheter was placed under sterile conditions. A sterile speculum was placed resulting in good visualization of the cervix. A single-tooth tenaculum was used to grasp the anterior lip cervix. The cervix was sequentially dilated with Lenny dilators. A V-Care uterine manipulator was placed without any difficulty. The single-tooth tenaculum was removed, as well as the speculum. A sterile glove switch was performed. Attention was turned to the abdomen. A 2mm incision was made in the umbilicus, and through this incision a Veress needle was inserted into the intraperitoneal cavity. Intraperitoneal placement was confirmed with ease of flow of normal saline, positive drop test, no return on aspiration, and an opening pressure of less than 10 mmHg upon initial insufflation. The abdomen was insufflated with 2 L of gas. The Veress needle was removed. A supraumbilical 8 mm incision was made. Through this incision, the robotic trochar/cannula was inserted into the intraperitoneal cavity under direct visualization. No incidental bleeding nor injury was noted. Patient was placed in 30 Trendelenburg. The right and left trocars/cannulas were placed on both the right and left side through 8 mm incisions, guided by laparoscopic visualization. No incidental bleeding nor injury was noted. The robot was docked in typical fashion. The instruments were inserted, guided by lapa roscopic visualization. My attention was turned to the robotic console. The right IP ligament was identified and elevated. Retroperitoneal dissection was performed with monopolar galilea and blunt dissection. The right ureter was identified and noted to be well away from the planned surgical pedicle. The right IP ligament was sequentially clamped, coagulated and transected with the vessel sealer device. The amputated right ovary and fallopian tube were put into the posterior cul-de-sac, then through the colpotomy later in the surgery. In similar fashion, the left IP ligament was identified and elevated. Retroperitoneal dissection was performed with monopolar galilea and blunt dissection. The left ureter was identified and noted to be well away from the planned surgical pedicle. The left IP ligament was sequentially clamped, coagulated and transected with the vessel sealer device. Amputated left ovary and fallopian tube were put into the posterior cul-de-sac, then through the colpotomy later in the surgery. The right utero-ovarian ligament and right round ligament were sequentially clamped, coagulated and transected with the vessel sealer device. The vesicouterine peritoneum was dissected with the vessel sealer device to create the bladder flap, thus mobilizing the lower uterine segment and cervix off of the bladder. The right uterine vasculature was sequentially clamped, coagulated and transected above and medial to the rim of the colpotomy cup. The left utero-ovarian ligament and left round ligament were sequentially clamped, coagulated and transected with the vessel sealer device. The remainder of the bladder flap was dissected using the vessel sealer device and blunt dissection. The left uterine vasculature was sequentially clamped, coagulated and transected above and medial to the rim of the colpotomy cup. The outline of the entire V- care colpotomy cup was able to be delineated. Excellent blanching of the uterus was noted. A circumferential colpotomy was performed using the da Jim monopolar galilea, following the contour of the cup. The amputated cervix and uterus were brought through the colpotomy, as well as the right and left adnexa, into and out of the vagina. All specimens were accounted for. All specimens that had been removed from the vagina were sent to pathology for permanent section. A laparotomy sponge was placed in a sterile glove and then placed into the vagina to maintain pneumoperitoneum. The colpotomy was closed with the V-lock barbed suture in running fashion, thus creating the vaginal cuff. Excellent hemostasis was noted throughout the steps above. Marcin was placed over the vaginal cuff to ensure hemostasis. The instruments were removed from the abdomen and the robot was un-docked. The gas was released from the abdomen and the patient was taken out of Trendelenburg. I re-scrubbed, and attention was turned to the pelvis. The Jeter catheter was removed. The cystoscope was placed transurethrally into the bladder and normal saline was instilled. No bladder injury/suture material was noted. IV methylene blue had been administered by anesthesia and bilateral UO efflux was confirmed. The fluid was drained out of the bladder through the cystoscope device, then the cystoscope was removed. The vagina was copiously irrigated. A sterile digital vaginal exam revealed no significant bleeding and an intact vaginal cuff. A sterile glove switch was performed. The da Jim cannulas were removed. The skin incisions were closed with 4-0 Monocryl in subcuticular fashion. Sponge, needle and instrument counts were correct per protocol. The patient tolerated the entire procedure very well. She was transferred to the PACU in good and stable condition. DO JASMYN Hughes JONATHAN R. DO May 25, 2021 10:46
[2021-05-25] MEDS ORDERED: METOCLOPRAMIDE INJ 10MG/2ML VIAL (J2765 PER 1) IV PRN (11:00)
[2021-05-25] MEDS ORDERED: ONDANSETRON 4MG/2ML VIAL IV PRN ×2 (11:00→14:10)
[2021-05-25] MEDS ORDERED: HYDROMORPHONE HCL 0.5 MG/ 0.5 ML SYRINGE (J1170 PER 1) IV PRN (11:00)
[2021-05-25] MEDS ORDERED: oxyCODONE 5MG TAB PO PRN (11:00)
[2021-05-25] MEDS ORDERED: fentaNYL 100 MCG/2 ML INJECTION (J3010) IV PRN (11:00)
[2021-05-25] MEDS ORDERED: PROMETHAZINE INJ 25 MG/ML VIAL (J2550) IV ONE (11:05)
[2021-05-25] MEDS ORDERED: ONDANSETRON 4MG/2ML VIAL IV ONE (13:45)
[2021-05-25 14:30] VITALS: BP 139/76
[2021-05-25 15:00] VITALS: BP 130/80
[2021-05-25] MEDS ORDERED: KETOROLAC 30 MG/ML 1ML VIAL IV SCH (16:00)
[2021-05-25 16:04] VITALS: BP 128/78
[2021-05-25 17:04] VITALS: BP 132/76
[2021-05-25] MEDS ORDERED: DOCU100C16 PO (19:41)
[2021-05-25] MEDS ORDERED: PERCOCET PO (19:41)
[2021-05-25] MEDS ORDERED: IBUP80TA PO (19:41)
[2021-05-25] MEDS ORDERED: ATORVASTATIN 20 MG TAB PO SCH (21:00)
[2021-05-26] MEDS ORDERED: ASPIRIN 81MG ENTERIC TABLET PO SCH (09:00)
[2021-05-26] MEDS ORDERED: IBUPROFEN 800 MG TAB PO SCH (12:00)
[2021-06-25] MEDS ORDERED: LETR2.5T2 PO (19:48)
== END 2021-05-25 20:05 | disposition home or self-care (01) ==
LOC: M SDC 06:12 → M OBS 13:45 → M SDC 20:05
PROVIDERS: ATTEND Obstetrics & Gynecology
DX: N80.0 Endometriosis of uterus (principal); Z85.3 Personal history of malignant neoplasm of breast; Z15.09 Genetic susceptibility to other malignant neoplasm; I10 Essential (primary) hypertension; E78.5 Hyperlipidemia, unspecified; E05.90 Thyrotoxicosis, unspecified without thyrotoxic crisis or storm; R91.1 Solitary pulmonary nodule
CPT/HCPCS: 36415; 58571; 84703; 85027; 86850; 86900; 86901; 88307; J0131; J0690; J1100; J1170; J1885; J2250; J2405; J2765; J3010; Q9968; S2900

== ENCOUNTER 2021-07-02 09:11 | Outpatient (RCR) | payer OTHER ==
[~2021-07-02 09:11] MED LIST changes: +DOCU100C16 PO; +IBUP80TA PO; -LISI-898 PO; +LISI5TAB11 PO; -LR 1,000 ML IV ONE; -MONT10TA10 PO; +MONT10TA97 PO; +ONDA-84 PO; -ONDA8TAB10 PO; +PERCOCET PO; -PROC10TA4 PO; +PROC10TA5 PO; -ceFAZolin SOD 1 GM in D5W MINI-BAG PLUS 50 ML IV ONE; +zinc PO
== END 2021-07-28 ==
LOC: M PT 09:11
PROVIDERS: ATTEND Surgery
DX: I89.0 Lymphedema, not elsewhere classified (principal)

== ENCOUNTER → 2021-08-04 | Outpatient (CLI) | payer OTHER ==
[~2021-08-04] MED LIST changes: +LISI-898 PO; -LISI5TAB11 PO; +MONT10TA10 PO; -MONT10TA97 PO; -ONDA-84 PO; +ONDA8TAB10 PO; +PROC10TA4 PO; -PROC10TA5 PO
--- NOTE | 2021-08-04 11:21 | RADONC ---
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 She underwent BL mastectomy and right ALND on 06/05/[address] Cooley. She opted against reconstruction. She completed adjuvant chemotherapy and then underwent comprehensive PMRT 50.4 Gy in 28 fractions completed 12/22/20-01/29/21. Diagnosis/Treatment History Oncologic History Summer 2019 presented with palpable right upper outer quadrant mass she first noticed in August 2019. She underwent US biopsy on 03/28/20 which showed IDC. EOD MRI on 04/07/20 revealed the right breast mass and no concerning [employer] in the axilla, there was also concern for enhancement in the left breast. Patient underwent BL mastectomy on 06/05/20, right SLNB was positive and ALND was completed. Final pathology showed [id number] ER/WY+ HER2- Grade 3, 4/9 nodes, KONSTANTIN+. Left breast specimen was cancer free. She has declined reconstruction. She had adjuvant chemotherapy consisting of dose dense AC-T chemotherapy 06/2020- 09/2020. PMRT 12/22/20-01/29/21 50.4 Gy in 28 fractions. Started adjuvant endocrine therapy tamoxifen 01/30/2021. Had TLH/BSO 05/05/21. Started Anastrozole post hysterectomy. Survivorship: Test Due Next Last result Notes TSH, T4* 6m post-tx, then q1y Per PCP Has anti TG AB Carotid US* q10 y post-tx 2029 Smoking cessation Assess annually if applicable N/A Screening CT chest q1y if eligible per USPSTF N/A Mammograms Min q1y, if breast conservation N/A mastectomy CBC,CMP, Lipids q1y Per Cards/PCP DEXA q2y if on AI Per medical oncology 2019 Mild osteopenia On sue/vitamin D Interval History Earnestine reports that her lymphedema is well-compensated with sleeve and pump. She is seeing PT/OT periodically as needed. She has some return in her energy and appetite. Had a prolonged recovery s/p hysterectomy. She is tolerating the AI with no side effects. She takes calcium and vitamin D. She is having good luck with CBD for her anxiety and chronic pain. She has close PCP follow up for her heart. TFTs checked recently WNL. 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 Social History: Never smoker Does not drink Allergies / Meds Allergies: Coded Allergies: SEASONAL ALLERGIES (Verified Allergy, Unknown, 05/11/21) Home Meds Active Scripts Letrozole (Letrozole) 2.5 Mg Tablet, 2.5 MG PO DAILY for 90 Days, #90 TAB 3 Refills Prov:Adrianne Mullen ANP 06/25/21 Ibuprofen (Ibuprofen) 800 Mg Tablet, 800 MG PO Q8H, #30 TAB 3 Refills Prov:TOREY ALVARENGA DO 05/25/21 Reported Medications [zinc] No Conflict Check, 10 MG PO DAILY 05/25/21 [place]-3 Fatty Acids/Fish Oil (Fish Oil 1,000 mg Capsule) 1 Each Capsule, 1 CAP PO DAILY for 30 Days, #30 CAP 05/11/21 Aspirin (Ecotrin) 81 Mg Tablet.dr, 81 MG PO DAILY for pain for 30 Days, #30 TAB 07/31/20 Cannabidiol (CBD OIL) Btl, 1 ML PO 3-4XDP 05/28/20 Lactobacillus Combo No.10 (Probiotic) 1 Each Capsule, 1 CAP PO DAILY, CAP 05/28/20 Ubidecarenone (Co Q-10) 200 Mg Capsule, 100 MG PO BID, CAP 05/28/20 Cholecalciferol (Vitamin D3) (Vitamin D3) 1,000 Unit Tablet, 5000 UNITS PO DAILY, TAB 05/28/20 Calcium Carbonate (Tums) 200 Mg Tab.chew, 500 MG PO ACHS PRN for HEARTBURN, CHW 02/16/19 Cyanocobalamin (Vitamin B-12) (Vitamin B-12) 1,000 Mcg Tablet, 1000 MCG PO DAILY, TAB 02/16/19 Magnesium Citrate (Magnesium Citrate) 125 Mg Capsule, 125 MG PO BID, CAP 02/16/19 Montelukast Sodium (Montelukast Sodium) 10 Mg Tablet, 10 MG PO DAILY PRN for ALLERGIES, TAB 02/16/19 Ascorbic Acid (Vitamin C) 500 Mg Capsule, 500 MG PO DAILY 02/16/19 Mv-Min/Iron/Folic/Calcium/Vitk (Women's Multivitamin Tablet) 1 Each Tablet, 1 TAB PO DAILY, TAB 02/16/19 Calcium Carbonate/Vitamin D3 (Calcium 600 + Vit D 400 Softgl) 1 Each Capsule, 1 CAP PO Q2D, CAP 02/16/19 Ketotifen Fumarate ([place]) 0.025% 10ML Drops, 1 DROP OU BID PRN for ALLERGIES 02/16/19 Fluticasone Propionate (Flonase Allergy Relief) 9.9 Ml [place].susp, 1 SPRAY NA BID PRN for ALLERGIES 02/16/19 Azelastine HCl (Azelastine HCl) 0.1% [place].pump, 2 SPRAY NA BID PRN for ALLERGIES 02/16/19 Cetirizine HCl (ZyrTEC) 10 Mg Capsule, 10 MG PO DAILY, CAP 02/16/19 Nitroglycerin (Nitroglycerin) 0.4 Mg Tab.subl, 1 TAB SL NITRO PRN for CHEST PAIN 02/16/19 Atorvastatin Calcium (Atorvastatin Calcium) 80 Mg Tablet, 80 MG PO QHS 02/16/19 Discontinued Scripts Docusate Sodium (Docusate Sodium) 100 Mg Capsule, 100 MG PO BID, #20 CAP 3 Refills Prov:TOREY ALVARENGA DO 05/25/21 Oxycodone/Acetaminophen (Oxycodone-Acetaminophen 5-325) 1 Each Tablet, 2 TAB PO Q6H PRN for SEVERE PAIN (PS 8-10) MDD 4, #14 TAB 0 Refills Prov:TOREY ALVARENGA DO 05/25/21 Review of Systems Review of Systems Constitutional: Denies: Fatigue, Weight Loss Eyes: Denies: Pain HEENT: Denies: Head Aches Skin: Denies: Rash Breast: Denies: New Breast Lumps / Masses, Nipple Retraction, Nipple Discharge, Breast Skin Changes, Breast Pain or Tenderness Pulmonary: Denies: Dyspnea Cardiovascular: Reports: Edema; Denies: Chest Pain, Palpitations Hematologic: Denies: Enlarged Lymph Nodes Endocrine: Denies: Cold Intolerance Musculoskeletal: Denies: Neck pain, Back pain Neurological: Denies: Weakness, Numbness Psych: Reports: Mood Normal Physical Examination Vital Signs Ht 63" Wt 160 lbs BMI 28 T 97.8 P 105 RR 20 BP 124/89 O2 97% Pain 2 Fatigue 2 General Exam: Alert, Cooperative, No Acute Distress Eye Exam: RADHA HARTLEY ENT EXAM: Atraumatic Neck Exam: Supple; Negative: Lymphadenopathy Chest Exam: Clear to auscultation, Normal air movement Heart Exam: Rate Normal, Regular Rhythm Breast Exam: Skin Changes (Mild right sided hyperpigmentation. Mild dependent edema in the right medial axilla. RUE edema fully reduced with sleeve. ); Negative: Lumps or Masses Extremity Exam: Negative: Tenderness Skin Exam: Nl turgor and temperature Neuro Exam: Normal Gait, Normal Speech, Cranial Nerves 3-12 NL Psych Exam: Mental status NL Diagnostic and Laboratory Diagnostic Review Radiologic images, relevant labs and pathology reports were personally reviewed and discussed with Ms. Troy. Assessment and Plan Impression Assessment Ms. 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 She underwent BL mastectomy and right ALND on 06/05/[address] Cooley. She opted against reconstruction. She completed adjuvant chemotherapy and then underwent comprehensive PMRT 50.4 Gy in 28 fractions completed 12/22/20-01/29/21. She is doing well, no evidence of disease on exam today. She has no significant late RT sequelae evident. Her lymphedema is especially well managed. She is tolerating AI. Her PCP is following her cardiac labs as well as her thyroid function (she has auto antibodies). I will see her again in 6 months time. We can move to q12m from there if all is well. Performance Status ECOG 1 Plan Follow up in 6 months Ms. Troy was encouraged to call with questions or concerns in the interim period. Billing Statement Total time of [23] minutes was spent preparing for the visit [1], obtaining HPI [6], examining the patient [2], reviewing diagnostic tests [1], discussing management options [6], coordinating care [1], and writing this note [6]. MARGY ROMERO MD Aug 04, 2021 11:21
== END ==
LOC: M ONCR 09:30
PROVIDERS: ATTEND General Practice
DX: C50.411 Malignant neoplasm of upper-outer quadrant of right female breast (principal); Z92.3 Personal history of irradiation; Z92.21 Personal history of antineoplastic chemotherapy; Z79.891 Long term (current) use of opiate analgesic; Z79.899 Other long term (current) drug therapy

== ENCOUNTER → 2021-10-29 | Outpatient (REF) | payer OTHER ==
[~2021-10-29] MED LIST changes: -D31000TA2 PO; -LISI-898 PO; +LISI5TAB11 PO; -MONT10TA10 PO; +MONT10TA97 PO; +ONDA-84 PO; -ONDA8TAB10 PO; -PROC10TA4 PO; +PROC10TA5 PO; +VITA100093 PO; +ZINC10LO4 PO
[2021-10-29 11:34] LABS: HEMOGLOBIN 13.7 g/dl (12.0-15.5); MEAN CORPUSCULAR HEMOGLOBIN 29.2 pg (27.0-33.0); MEAN CORPUSCULAR HGB CONC 33.4 g/dl (32.0-36.5); MEAN CORPUSCULAR VOLUME 87.4 fl (80.0-96.0); PLATELET COUNT, AUTOMATED 197 10^3/uL (150-450); RED BLOOD COUNT 4.69 10^6/uL (4.00-5.40); WHITE BLOOD COUNT 4.1 10^3/uL (4.0-10.0)
[2021-10-29 11:45] LABS: CHOLESTEROL LEVEL 129 MG/DL (<200); HDL CHOLESTEROL 62 MG/DL (>40); LDL CHOLESTEROL 47 MG/DL (<100); MAGNESIUM LEVEL 2.3 MG/DL (1.8-2.4); NON-HDL-C 67 MG/DL; TRIGLYCERIDES LEVEL 98 MG/DL (<150)
[2021-10-29 11:55] LABS: TOTAL 25(OH) VITAMIN D 49.9 NG/ML (30.0-100.0)
[2021-10-29 11:57] LABS: VITAMIN B12 LEVEL > 2000 PG/ML (247-911)
[2021-10-29 17:57] LABS: FREE T4 0.91 NG/DL (0.76-1.46)
== END ==
LOC: M LAB REF 09:16
PROVIDERS: ATTEND Family Medicine
DX: E78.5 Hyperlipidemia, unspecified (principal); E04.9 Nontoxic goiter, unspecified; E55.9 Vitamin D deficiency, unspecified; E11.9 Type 2 diabetes mellitus without complications; C50.411 Malignant neoplasm of upper-outer quadrant of right female breast; Z95.5 Presence of coronary angioplasty implant and graft

== ENCOUNTER 2021-12-25 08:28 | Outpatient (RCR) | payer OTHER | END 2021-12-26 | LOC: M PT 08:28 | PROVIDERS: ATTEND Surgery | DX: I89.0 Lymphedema, not elsewhere classified (principal) ==

== ENCOUNTER → 2022-02-03 | Outpatient (CLI) | payer OTHER | LOC: M ONCR 08:34 | PROVIDERS: ATTEND General Practice | DX: C50.411 Malignant neoplasm of upper-outer quadrant of right female breast (principal); J30.2 Other seasonal allergic rhinitis; I89.0 Lymphedema, not elsewhere classified; Z79.82 Long term (current) use of aspirin; Z79.899 Other long term (current) drug therapy; Z90.13 Acquired absence of bilateral breasts and nipples; Z92.21 Personal history of antineoplastic chemotherapy; Z92.3 Personal history of irradiation ==

== ENCOUNTER → 2022-02-23 | Outpatient (CLI) | payer OTHER ==
[~2022-02-23] MED LIST changes: +EXEM25TA PO
== END ==
LOC: M RAD 09:51
PROVIDERS: ATTEND Internal Medicine Medical Oncology
DX: R74.01 Elevation of levels of liver transaminase levels (principal)

== ENCOUNTER → 2022-02-26 | Outpatient (CLI) | payer OTHER | LOC: M RAD 09:04 | PROVIDERS: ATTEND Internal Medicine Medical Oncology | DX: C50.919 Malignant neoplasm of unspecified site of unspecified female breast (principal); M89.8X9 Other specified disorders of bone, unspecified site | CPT/HCPCS: 78306; A9503 ==

== ENCOUNTER → 2022-05-05 | Outpatient (REF) | payer OTHER ==
[2022-05-05 09:31] LABS: HEMATOCRIT 41.8 % (36.0-47.0); MEAN CORPUSCULAR HEMOGLOBIN 29.7 pg (27.0-33.0); MEAN CORPUSCULAR HGB CONC 33.5 g/dl (32.0-36.5); MEAN CORPUSCULAR VOLUME 88.6 fl (80.0-96.0); PLATELET COUNT, AUTOMATED 192 10^3/uL (150-450); RED BLOOD COUNT 4.72 10^6/uL (4.00-5.40); WHITE BLOOD COUNT 3.8 10^3/uL (4.0-10.0)
[2022-05-05 10:14] LABS: ALBUMIN 4.1 GM/DL (3.2-5.2); ALT/SGPT 42 U/L (12-78); BILIRUBIN,TOTAL 0.8 MG/DL (0.2-1.0); BLOOD UREA NITROGEN 12 MG/DL (7-18); CALCIUM LEVEL 9.4 MG/DL (8.5-10.1); CARBON DIOXIDE LEVEL 28 MEQ/L (21-32); CHLORIDE LEVEL 107 MEQ/L (98-107); CHOLESTEROL LEVEL 112 MG/DL (<200); CREATININE FOR GFR 0.54 MG/DL (0.55-1.30); FREE T4 0.86 NG/DL (0.76-1.46); GLOMERULAR FILTRATION RATE > 60.0 (>58); GLUCOSE, FASTING 99 MG/DL (70-100); HDL CHOLESTEROL 64 MG/DL (>40); LDL CHOLESTEROL 32 MG/DL (<100); NON-HDL-C 48 MG/DL; POTASSIUM SERUM 3.3 MEQ/L (3.5-5.1); SODIUM LEVEL 138 MEQ/L (136-145); TOTAL PROTEIN 7.5 GM/DL (6.4-8.2); TRIGLYCERIDES LEVEL 78 MG/DL (<150)
== END ==
LOC: M LAB REF 09:06
PROVIDERS: ATTEND Family Medicine
DX: I50.20 Unspecified systolic (congestive) heart failure (principal); I11.9 Hypertensive heart disease without heart failure; E78.5 Hyperlipidemia, unspecified; E04.9 Nontoxic goiter, unspecified

== ENCOUNTER → 2022-05-05 | Outpatient (CLI) | payer OTHER | LOC: M ONCR 10:02 | PROVIDERS: ATTEND Dietitian, Registered | DX: Z71.3 Dietary counseling and surveillance (principal); I25.2 Old myocardial infarction; Z85.3 Personal history of malignant neoplasm of breast; Z92.21 Personal history of antineoplastic chemotherapy; Z92.3 Personal history of irradiation ==

== ENCOUNTER 2022-06-23 08:30 | Outpatient (RCR) | payer OTHER | END 2022-06-28 | LOC: M PT 08:30 | PROVIDERS: ATTEND Surgery | DX: I89.0 Lymphedema, not elsewhere classified (principal) ==

== ENCOUNTER 2022-12-22 08:34 | Outpatient (RCR) | payer OTHER ==
[~2022-12-22 08:34] MED LIST changes: +LIDO15SO PO; -LIDO2SOL17 PO; +MONT4TAB2 PO; +OMEG12002 PO; -SING4CHW9 PO; +[UNRECOGNIZED DRUG - CODE] XX; +[UNRECOGNIZED DRUG - OTHER]
== END 2022-12-26 ==
LOC: M PT 08:34
PROVIDERS: ATTEND Surgery
DX: I89.0 Lymphedema, not elsewhere classified (principal)

== ENCOUNTER → 2022-12-24 | Outpatient (CLI) | payer OTHER | LOC: M WHC 08:02 | PROVIDERS: ATTEND Internal Medicine Medical Oncology | DX: K76.9 Liver disease, unspecified (principal) ==

== ENCOUNTER → 2023-02-02 | Outpatient (CLI) | payer OTHER ==
[~2023-02-02] MED LIST changes: +MAG100TA PO
== END ==
LOC: M ONCR 08:22
PROVIDERS: ATTEND General Practice
DX: C50.411 Malignant neoplasm of upper-outer quadrant of right female breast (principal); Z90.13 Acquired absence of bilateral breasts and nipples; Z92.21 Personal history of antineoplastic chemotherapy; Z92.3 Personal history of irradiation; I97.2 Postmastectomy lymphedema syndrome; G62.0 Drug-induced polyneuropathy; Z71.2 Person consulting for explanation of examination or test findings; J30.2 Other seasonal allergic rhinitis; Z90.710 Acquired absence of both cervix and uterus; Z79.811 Long term (current) use of aromatase inhibitors; Z79.899 Other long term (current) drug therapy; Z87.891 Personal history of nicotine dependence

== ENCOUNTER → 2023-02-02 | Outpatient (CLI) | payer OTHER ==
[~2023-02-02] VITALS: Ht 161.3 cm; Wt 69.6 kg
[2023-02-02 08:37] VITALS: BP 124/85; O2SAT 97
== END ==
LOC: M PAL 08:25
PROVIDERS: ATTEND Nurse Practitioner Adult Health
DX: G62.0 Drug-induced polyneuropathy (principal); I97.2 Postmastectomy lymphedema syndrome; Z90.13 Acquired absence of bilateral breasts and nipples; G89.3 Neoplasm related pain (acute) (chronic); Z92.21 Personal history of antineoplastic chemotherapy; Z92.3 Personal history of irradiation; Z85.3 Personal history of malignant neoplasm of breast; Z87.891 Personal history of nicotine dependence; J30.2 Other seasonal allergic rhinitis; Z79.899 Other long term (current) drug therapy; Z79.82 Long term (current) use of aspirin

== ENCOUNTER → 2023-05-13 | Outpatient (REF) | payer OTHER ==
[~2023-05-13] MED LIST changes: +IRISH SEA MOSS PO; -LIDO1CRE42 TOP; +LIDO30CR18 TOP; +[UNRECOGNIZED DRUG - OTHER] PO
[2023-05-13 09:40] LABS: HEMATOCRIT 38.2 % (36.0-47.0); HEMOGLOBIN 13.2 g/dl (12.0-15.5); MEAN CORPUSCULAR HEMOGLOBIN 29.3 pg (27.0-33.0); MEAN CORPUSCULAR HGB CONC 34.6 g/dl (32.0-36.5); MEAN CORPUSCULAR VOLUME 84.7 fl (80.0-96.0); PLATELET COUNT, AUTOMATED 196 10^3/uL (150-450); RED BLOOD COUNT 4.51 10^6/uL (4.00-5.40); WHITE BLOOD COUNT 4.2 10^3/uL (4.0-10.0)
[2023-05-13 09:54] LABS: FREE T4 1.11 NG/DL (0.89-1.76)
[2023-05-13 09:56] LABS: ALBUMIN 4.1 G/DL (3.2-5.2); ALKALINE PHOSPHATASE 129 U/L (46-116); ALT/SGPT 41 U/L (7.0-40); AST/SGOT 23 U/L (<34); BILIRUBIN,TOTAL 1.3 MG/DL (0.3-1.2); BLOOD UREA NITROGEN 11 MG/DL (9-23); CALCIUM LEVEL 9.4 MG/DL (8.5-10.1); CARBON DIOXIDE LEVEL 28 MMOL/L (20-31); CHLORIDE LEVEL 105 MMOL/L (98-107); CHOLESTEROL LEVEL 136 MG/DL (<200); CHOLESTEROL RISK RATIO 2.28 (<5); CREATININE FOR GFR 0.46 MG/DL (0.55-1.30); GLOMERULAR FILTRATION RATE > 60.0 (>58); GLUCOSE, FASTING 100 MG/DL (60-100); HDL CHOLESTEROL 59.6 MG/DL (>40); LDL CHOLESTEROL 59.4 MG/DL (<100); NON-HDL-C 76.4 MG/DL; POTASSIUM SERUM 3.8 MMOL/L (3.5-5.1); SODIUM LEVEL 140 MMOL/L (136-145); TOTAL PROTEIN 6.8 G/DL (5.7-8.2); TRIGLYCERIDES LEVEL 85 MG/DL (<150)
== END ==
LOC: M LAB REF 08:43
PROVIDERS: ATTEND Family Medicine
DX: I50.20 Unspecified systolic (congestive) heart failure (principal); I11.9 Hypertensive heart disease without heart failure; E78.5 Hyperlipidemia, unspecified; E04.9 Nontoxic goiter, unspecified

== ENCOUNTER → 2023-09-27 | Outpatient (REF) | payer OTHER ==
[2023-09-27 16:27] LABS: BASO % 0.4 % (0.0-1.0); EOS # 0.1 10^3/uL (0.0-0.5); EOS % 1.9 % (0.0-3.0); HEMOGLOBIN 14.8 g/dl (12.0-15.5); LYMPH % 40.8 % (24.0-44.0); MEAN CORPUSCULAR HEMOGLOBIN 28.9 pg (27.0-33.0); MEAN CORPUSCULAR HGB CONC 32.9 g/dl (32.0-36.5); MEAN CORPUSCULAR VOLUME 87.9 fl (80.0-96.0); MONO # 0.3 10^3/uL (0.0-0.8); MONO % 6.7 % (2.0-8.0); NEUTROPHILS # 2.4 10^3/uL (1.5-8.5); NEUTROPHILS % 50.2 % (36.0-66.0); PLATELET COUNT, AUTOMATED 207 10^3/uL (150-450); RED BLOOD COUNT 5.12 10^6/uL (4.00-5.40); WHITE BLOOD COUNT 4.8 10^3/uL (4.0-10.0)
[2023-09-27 16:56] LABS: C REACTIVE PROTEIN QUANTITATIV < 0.40 MG/DL (<1.0)
[2023-09-27 16:58] LABS: ALBUMIN 4.4 G/DL (3.2-5.2); ALKALINE PHOSPHATASE 127 U/L (46-116); ALT/SGPT 26 U/L (7.0-40); AST/SGOT 20 U/L (<34); BILIRUBIN,TOTAL 0.9 MG/DL (0.3-1.2); BLOOD UREA NITROGEN 11 MG/DL (9-23); CALCIUM LEVEL 9.8 MG/DL (8.5-10.1); CARBON DIOXIDE LEVEL 30 MMOL/L (20-31); CHLORIDE LEVEL 105 MMOL/L (98-107); CHOLESTEROL RISK RATIO 4.78 (<5); CREATININE FOR GFR 0.48 MG/DL (0.55-1.30); GLOMERULAR FILTRATION RATE > 60.0 (>58); GLUCOSE, FASTING 89 MG/DL (60-100); HDL CHOLESTEROL 68.2 MG/DL (>40); LDL CHOLESTEROL 231.4 MG/DL (<100); MAGNESIUM LEVEL 2.2 MG/DL (1.8-2.4); NON-HDL-C 257.8 MG/DL; POTASSIUM SERUM 4.8 MMOL/L (3.5-5.1); SODIUM LEVEL 140 MMOL/L (136-145); TOTAL PROTEIN 7.9 G/DL (5.7-8.2)
[2023-09-27 16:59] LABS: THYROID STIMULATING HORMONE 1.888 uIU/ML (0.55-4.78)
[2023-09-27 17:00] LABS: FREE T4 1.17 NG/DL (0.89-1.76)
[2023-09-27 17:35] LABS: HEMOGLOBIN A1c 5.2 % (4.0-6.0)
== END ==
LOC: M SFHCADAM 12:11
PROVIDERS: ATTEND Family Medicine
DX: M79.89 Other specified soft tissue disorders (principal); I50.20 Unspecified systolic (congestive) heart failure; E55.9 Vitamin D deficiency, unspecified; E04.9 Nontoxic goiter, unspecified; R73.03 Prediabetes; I25.2 Old myocardial infarction; E78.5 Hyperlipidemia, unspecified

== ENCOUNTER → 2023-10-04 | Outpatient (CLI) | payer OTHER | LOC: M WHC 08:03 | PROVIDERS: ATTEND Family Medicine | DX: R22.32 Localized swelling, mass and lump, left upper limb (principal) ==

== ENCOUNTER → 2023-12-29 | Outpatient (REF) | payer OTHER ==
[~2023-12-29] MED LIST changes: -LIDO15SO PO; +LIDO15SO8 PO
[2023-12-29 13:35] LABS: C REACTIVE PROTEIN QUANTITATIV < 0.40 MG/DL (<1.0)
[2023-12-29 13:36] LABS: THYROID STIMULATING HORMONE 2.136 uIU/ML (0.55-4.78)
[2023-12-29 13:37] LABS: ALBUMIN 4.1 G/DL (3.2-5.2); ALKALINE PHOSPHATASE 115 U/L (46-116); ALT/SGPT 32 U/L (7.0-40); AST/SGOT 27 U/L (<34); BILIRUBIN,TOTAL 0.8 MG/DL (0.3-1.2); BLOOD UREA NITROGEN 11 MG/DL (9-23); CALCIUM LEVEL 9.5 MG/DL (8.5-10.1); CARBON DIOXIDE LEVEL 29 MMOL/L (20-31); CHLORIDE LEVEL 105 MMOL/L (98-107); CHOLESTEROL LEVEL 284 MG/DL (<200); CHOLESTEROL RISK RATIO 4.01 (<5); CREATININE FOR GFR 0.51 MG/DL (0.55-1.30); GLOMERULAR FILTRATION RATE > 60.0 (>58); GLUCOSE, FASTING 86 MG/DL (60-100); HDL CHOLESTEROL 70.8 MG/DL (>40); LDL CHOLESTEROL 191.2 MG/DL (<100); MAGNESIUM LEVEL 2.1 MG/DL (1.8-2.4); NON-HDL-C 213.2 MG/DL; POTASSIUM SERUM 4.9 MMOL/L (3.5-5.1); SODIUM LEVEL 141 MMOL/L (136-145); TOTAL PROTEIN 7.2 G/DL (5.7-8.2); TRIGLYCERIDES LEVEL 110 MG/DL (<150)
[2023-12-29 13:38] LABS: TOTAL 25(OH) VITAMIN D 48.3 NG/ML (20.0-100.0); VITAMIN B12 LEVEL 661 PG/ML (211-911)
[2023-12-29 13:41] LABS: HEMATOCRIT 44.1 % (36.0-47.0); HEMOGLOBIN 14.5 g/dl (12.0-15.5); MEAN CORPUSCULAR HEMOGLOBIN 28.8 pg (27.0-33.0); MEAN CORPUSCULAR HGB CONC 32.9 g/dl (32.0-36.5); MEAN CORPUSCULAR VOLUME 87.5 fl (80.0-96.0); PLATELET COUNT, AUTOMATED 219 10^3/uL (150-450); RED BLOOD COUNT 5.04 10^6/uL (4.00-5.40); WHITE BLOOD COUNT 4.5 10^3/uL (4.0-10.0)
== END ==
LOC: M SFHCADAM 08:55
PROVIDERS: ATTEND Family Medicine
DX: I50.20 Unspecified systolic (congestive) heart failure (principal); I25.2 Old myocardial infarction; E78.5 Hyperlipidemia, unspecified; I25.10 Atherosclerotic heart disease of native coronary artery without angina pectoris; R73.03 Prediabetes; E04.9 Nontoxic goiter, unspecified; E55.9 Vitamin D deficiency, unspecified

== ENCOUNTER 2024-01-18 08:33 | Outpatient (RCR) | payer OTHER | END 2024-01-27 | LOC: M PT 08:33 | PROVIDERS: ATTEND Internal Medicine Medical Oncology | DX: I89.0 Lymphedema, not elsewhere classified (principal) ==

== ENCOUNTER → 2024-02-01 | Outpatient (CLI) | payer OTHER ==
[~2024-02-01] VITALS: Ht 160 cm; Wt 69.0 kg
[~2024-02-01] MED LIST changes: +LIONS MANE MUSHROOM PO
[2024-02-01 11:40] VITALS: BP 161/89; O2SAT 98
== END ==
LOC: M PAL 11:05
PROVIDERS: ATTEND Nurse Practitioner Adult Health
DX: G62.0 Drug-induced polyneuropathy (principal); I97.2 Postmastectomy lymphedema syndrome; Z90.13 Acquired absence of bilateral breasts and nipples; G89.3 Neoplasm related pain (acute) (chronic); Z92.21 Personal history of antineoplastic chemotherapy; Z92.3 Personal history of irradiation; Z85.3 Personal history of malignant neoplasm of breast; Z87.891 Personal history of nicotine dependence; J30.2 Other seasonal allergic rhinitis; Z79.899 Other long term (current) drug therapy; Z79.82 Long term (current) use of aspirin

== ENCOUNTER → 2024-02-01 | Outpatient (CLI) | payer OTHER | LOC: M ONCR 11:04 | PROVIDERS: ATTEND General Practice | DX: Z08 Encounter for follow-up examination after completed treatment for malignant neoplasm (principal); I89.0 Lymphedema, not elsewhere classified; J30.2 Other seasonal allergic rhinitis; Z85.3 Personal history of malignant neoplasm of breast; Z90.13 Acquired absence of bilateral breasts and nipples; Z90.710 Acquired absence of both cervix and uterus; Z92.21 Personal history of antineoplastic chemotherapy; Z92.3 Personal history of irradiation ==

== ENCOUNTER → 2024-07-03 | Outpatient (REF) | payer OTHER ==
[~2024-07-03] MED LIST changes: -LIDO1CRE2 TOP; +LIDO4CRE12 TOP
[2024-07-03 13:54] LABS: BASO % 0.4 % (0.0-1.0); EOS # 0.3 10^3/uL (0.0-0.5); HEMATOCRIT 43.6 % (36.0-47.0); HEMOGLOBIN 14.4 g/dl (12.0-15.5); LYMPH # 1.6 10^3/uL (1.5-5.0); LYMPH % 29.6 % (24.0-44.0); MEAN CORPUSCULAR HEMOGLOBIN 28.6 pg (27.0-33.0); MEAN CORPUSCULAR VOLUME 86.7 fl (80.0-96.0); MONO # 0.5 10^3/uL (0.0-0.8); MONO % 8.3 % (2.0-8.0); NEUTROPHILS # 3.1 10^3/uL (1.5-8.5); NEUTROPHILS % 56.3 % (36.0-66.0); PLATELET COUNT, AUTOMATED 227 10^3/uL (150-450); RED BLOOD COUNT 5.03 10^6/uL (4.00-5.40); WHITE BLOOD COUNT 5.4 10^3/uL (4.0-10.0)
[2024-07-03 13:59] LABS: ALBUMIN 4.3 G/DL (3.2-5.2); ALKALINE PHOSPHATASE 132 U/L (35-104); ALT/SGPT 20 U/L (7.0-40); AST/SGOT 18 U/L (<34); BILIRUBIN,TOTAL 0.9 MG/DL (0.3-1.2); BLOOD UREA NITROGEN 11 MG/DL (9-23); CALCIUM LEVEL 10.2 MG/DL (8.5-10.1); CARBON DIOXIDE LEVEL 31 MMOL/L (20-31); CHLORIDE LEVEL 103 MMOL/L (98-107); CREATININE FOR GFR 0.44 MG/DL (0.55-1.30); GLOMERULAR FILTRATION RATE > 60.0 (>58); GLUCOSE, FASTING 93 MG/DL (60-100); POTASSIUM SERUM 4.6 MMOL/L (3.5-5.1); SODIUM LEVEL 139 MMOL/L (136-145); TOTAL PROTEIN 7.9 G/DL (5.7-8.2)
== END ==
LOC: M LABDRWAD 13:21
PROVIDERS: ATTEND Internal Medicine Medical Oncology
DX: Z01.89 Encounter for other specified special examinations (principal)

== ENCOUNTER → 2024-07-03 | Outpatient (REF) | payer OTHER ==
[2024-07-03 13:55] LABS: HEMATOCRIT 43.6 % (36.0-47.0); HEMOGLOBIN 14.3 g/dl (12.0-15.5); MEAN CORPUSCULAR HEMOGLOBIN 28.8 pg (27.0-33.0); MEAN CORPUSCULAR HGB CONC 32.8 g/dl (32.0-36.5); MEAN CORPUSCULAR VOLUME 87.9 fl (80.0-96.0); PLATELET COUNT, AUTOMATED 236 10^3/uL (150-450); RED BLOOD COUNT 4.96 10^6/uL (4.00-5.40); WHITE BLOOD COUNT 5.3 10^3/uL (4.0-10.0)
[2024-07-03 13:59] LABS: ALBUMIN 4.4 G/DL (3.2-5.2); ALKALINE PHOSPHATASE 130 U/L (35-104); ALT/SGPT 20 U/L (7.0-40); AST/SGOT 19 U/L (<34); BILIRUBIN,TOTAL 0.8 MG/DL (0.3-1.2); BLOOD UREA NITROGEN 10 MG/DL (9-23); CALCIUM LEVEL 9.9 MG/DL (8.5-10.1); CARBON DIOXIDE LEVEL 31 MMOL/L (20-31); CHLORIDE LEVEL 104 MMOL/L (98-107); CREATININE FOR GFR 0.46 MG/DL (0.55-1.30); GLOMERULAR FILTRATION RATE > 60.0 (>58); GLUCOSE, FASTING 95 MG/DL (60-100); MAGNESIUM LEVEL 2.1 MG/DL (1.8-2.4); POTASSIUM SERUM 4.3 MMOL/L (3.5-5.1); SODIUM LEVEL 142 MMOL/L (136-145); TOTAL PROTEIN 7.8 G/DL (5.7-8.2)
[2024-07-03 14:02] LABS: THYROID STIMULATING HORMONE 1.599 uIU/ML (0.55-4.78)
[2024-07-03 14:03] LABS: FERRITIN 36.4 NG/ML (7.3-270.7); FREE T4 1.18 NG/DL (0.89-1.76); TOTAL 25(OH) VITAMIN D 50.4 NG/ML (20.0-100.0)
[2024-07-03 14:36] LABS: HEMOGLOBIN A1c 5.2 % (4.0-6.0)
== END ==
LOC: M LABDRWAD 13:19
PROVIDERS: ATTEND Family Medicine
DX: G62.0 Drug-induced polyneuropathy (principal); E78.5 Hyperlipidemia, unspecified

== ENCOUNTER 2024-12-07 08:27 | Outpatient (RCR) | payer OTHER ==
[~2024-12-07 08:27] MED LIST changes: +[UNRECOGNIZED DRUG - OTHER] XX
== END 2024-12-26 ==
LOC: M PT 08:27
PROVIDERS: ATTEND Internal Medicine Medical Oncology
DX: I89.0 Lymphedema, not elsewhere classified (principal); M79.602 Pain in left arm

== ENCOUNTER → 2025-03-20 | Outpatient (REF) | payer OTHER ==
[2025-03-20 13:53] LABS: ALT/SGPT 27 U/L (7.0-40); AST/SGOT 27 U/L (<34); CALCIUM LEVEL 9.5 MG/DL (8.5-10.1); CARBON DIOXIDE LEVEL 30 MMOL/L (20-31); CHLORIDE LEVEL 101 MMOL/L (98-107); CHOLESTEROL LEVEL 280 MG/DL (<200); CHOLESTEROL RISK RATIO 3.90 (<5); CREATININE FOR GFR 0.52 MG/DL (0.55-1.30); GLOMERULAR FILTRATION RATE > 90.0 (>51); LDL CHOLESTEROL 170.1 MG/DL (<100); MAGNESIUM LEVEL 2.2 MG/DL (1.8-2.4); NON-HDL-C 208.3 MG/DL; POTASSIUM SERUM 4.4 MMOL/L (3.5-5.1); SODIUM LEVEL 144 MMOL/L (136-145); TRIGLYCERIDES LEVEL 191 MG/DL (<150)
[2025-03-20 13:54] LABS: PLATELET COUNT, AUTOMATED 218 10^3/uL (150-450)
[2025-03-20 13:57] LABS: TOTAL 25(OH) VITAMIN D 59.5 NG/ML (20.0-100.0)
[2025-03-20 13:58] LABS: FREE T4 1.19 NG/DL (0.89-1.76); VITAMIN B12 LEVEL 545 PG/ML (211-911)
[2025-03-20 14:04] LABS: ESTIMATED AVERAGE GLUCOSE 108.0 MG/DL (60-110)
== END ==
LOC: M SFHCADAM 09:09
PROVIDERS: ATTEND Family Medicine
DX: G62.0 Drug-induced polyneuropathy (principal); R73.03 Prediabetes; I50.20 Unspecified systolic (congestive) heart failure; C50.411 Malignant neoplasm of upper-outer quadrant of right female breast; E78.5 Hyperlipidemia, unspecified; E06.3 Autoimmune thyroiditis